=== PATIENT | female | born 1965 | race Caucasian/White ===

== ENCOUNTER 2019-05-28 12:10 | Inpatient (IN) | payer SELFPAY ==
[~2019-05-28] VITALS: Ht 157.5 cm; Wt 77.1 kg
--- OUTSIDE RECORDS SUMMARY | 2019-05-28 12:13 | XMS REPORT ---
Author Author [facility] Address Unknown Phone Unavailable Care Team Providers Care Regional Transportation Manager Name Role Phone Kelsey PARIKH Unavailable Unavailable Payers Payer Name Policy Type Policy Number Effective Date Expiration Date Problems This patient has no known problems. Allergies, Adverse Reactions, Alerts Allergy Name Allergy Type Status Severity Reaction(s) Onset Date Inactive Date Treating Clinician Comments No Known Allergies DA Active U 2018-12-27 00:00:00 Medications This patient has no known medications. Results Test Description Test Time Test Comments Text Results Atomic Results Result Comments - XR FOOT 2 VIEWS RT 2019-05-24 17:32:00 FAX: Trenton Paige NP [place]: St: REG Name: HAN PICHARDO [facility] : 1965 Age/S: 54/F [address] [facility] Unit #: [id number] Loc: [place] [address] Phys: Trenton Paige NP Acct: [id number] Dis Date: Status: REG ER PHONE #: [phone] Exam Date: 05/24/2019 1720 FAX #: [phone] Reason: trauma EXAMS: CPT CODE: [id number] XR FO[place] 2 [place] [id number] REASON FOR EXAM: trauma EXAM ORDER DATE: 05/24/2019 4:53 PM Ordering: Trenton Paige NP Attending:Rojelio Welch MD Location:[facility] PROCEDURE: - XR FOOT 2 VIEWS RT FINDINGS: 2 views of the right foot were obtained. The osseous structures are unremarkable in size and shape. The joint spaces are maintained. No evidence of fracture. The phalanges are intact. The metatarsal and tarsal bones are unremarkable IMPRESSION: Unremarkable right foot at 1732 Reported and signed by: Sage Cope M.D. CC: Trenton Paige NP Technologist: MARJAN SCHUMACHER RT(R) Trnscrd Date/Time/By: 05/24/2019 (579) : By: AliyahVTL Orig Print D/T: S: 05/24/2019 (8686) PAGE 1 Signed Report - XR TIBIA/FIBULA 2 V LT 2019-05-24 17:31:00 FAX: Trenton Paige NP [place]: St: REG Name: HAN PICHARDO [facility] : 1965 Age/S: 54/F [address] [facility] Unit #: [id number] Loc: [place] [address] Phys: Trenton Paige NP Acct: [id number] Dis Date: Status: REG ER PHONE #: [phone] Exam Date: 05/24/2019 1720 FAX #: [phone] Reason: trauma and swelling EXAMS: CPT CODE: [id number] XR TIBIA/FIBULA 2 [place] LT [id number] REASON FOR EXAM: trauma and swelling EXAM ORDER DATE: 05/24/2019 4:53 PM Ordering: Trenton Paige NP Attending: Location:[facility] . PROCEDURE: - XR KNEE 3 V LT, - XR TIBIA/FIBULA 2 V LT FINDINGS: 7 views of the left knee and left lower extremity were obtained. Comminuted lateral tibial plateau fracture The joint spaces are maintained. A moderate hemarthrosis noted The patella is intact IMPRESSION: Comminuted lateral tibial plateau fracture. Recommend correlation with CT. at 1731 Reported and signed by: Sage Cope M.D. CC: Trenton Paige NP Technologist: MARJAN VERA(R) Trnscrd Date/Time/By: 05/24/2019 (6885) : By: AliyahVTL Orig Print D/T: S: 05/24/2019 (5072) PAGE 1 Signed Report - XR KNEE 3 V LT 2019-05-24 17:31:00 FAX: Trenton Paige NP [place]: St: REG Name: HAN PICHARDO [facility] : 1965 Age/S: 54/F [address] [facility] Unit #: [id number] Loc: [place] [address] Phys: Trenton Paige NP Acct: [id number] Dis Date: Status: REG ER PHONE #: [phone] Exam Date: 05/24/2019 1720 FAX #: [phone] Reason: trauma and swelling EXAMS: CPT CODE: [id number] XR KNEE 3 [place] LT [address] REASON FOR EXAM: trauma and swelling EXAM ORDER DATE: 05/24/2019 4:53 PM Ordering: Trenton Paige NP Attending: Location:[facility] . PROCEDURE: - XR KNEE 3 V LT, - XR TIBIA/FIBULA 2 V LT FINDINGS: 7 views of the left knee and left lower extremity were obtained. Comminuted lateral tibial plateau fracture The joint spaces are maintained. A moderate hemarthrosis noted The patella is intact IMPRESSION: Comminuted lateral tibial plateau fracture. Recommend correlation with CT. at 1731 Reported and signed by: Sage Cope M.D. CC: Trenton Paige NP Technologist: MARJAN SCHUMACHER RT(R) Trnscrd Date/Time/By: 05/24/2019 (6976) : By: AliyahVTL Orig Print D/T: S: 05/24/2019 (7288) PAGE 1 Signed Report - XR WRIST 3 + V LT 2019-02-23 16:49:00 FAX: Sophia Blackwood NP [place]: St: REG Name: HAN PICHARDO [facility] : 1965 Age/S: 53/F [address] [facility] Unit #: [id number] Loc: [place] [address] Phys: Sophia Blackwood NP Acct: [id number] Dis Date: Status: REG ER PHONE #: [phone] Exam Date: 02/23/2019 1607 FAX #: [phone] Reason: fall, pain, previous fracture EXAMS: CPT CODE: [id number] XR WRIST 3 + V LT [address]31 REASON FOR EXAM: fall, pain, previous fracture EXAM ORDER DATE: 02/23/2019 3:37 PM Ordering Madhu: Sophia Blackwood NP PROCEDURE: - XR HAND 3 + V LT, - XR WRIST 3 + V LT Comparison:Left wrist radiographs December 27, 2018 FINDINGS: Corticated body adjacent to the ulnar styloid may represent an old fracture and is unchanged from the prior exam. Middle finger DIP joint is flexed and there is a small corticated body on the dorsal surface of the joint which may represent a small avulsion injury. No dislocation. There is flexion of the middle finger DIP joint. There is also interphalangeal joint space narrowing throughout the hand with small osteophytes seen throughout the phalanges. Mild degenerative changes are also present in the first CMC joint. Soft tissues are within normal limits IMPRESSION: Findings suggesting avulsion injury involving the middle finger DIP joint. No other fractures or avulsion are appreciated. Degenerative changes throughout the left hand. Old ulnar styloid fracture is unchanged from the previous radiographs December 2018. at 2106 Reported and signed by: Chiki Riggs MD CC: Sophia Blackwood NP Technologist: JACEK VERA (R) Trnscrd Date/Time/By: 02/23/2019 (512) : By: [email or web address] [facility] Print D/T: S: 02/23/2019 (0148) PAGE 1 Signed Report - XR HAND 3 + V LT 2019-02-23 16:49:00 FAX: Sophia Blackwood NP [place]: St: REG Name: HAN PICHARDO [facility] : 1965 Age/S: 53/F [address] [facility] Unit #: [id number] Loc: [place] [address] Phys: Sophia Blackwood NP Acct: [id number] Dis Date: Status: REG ER PHONE #: [phone] Exam Date: 02/23/2019 6600 FAX #: [phone] Reason: fall, pain, previous fracture EXAMS: CPT CODE: [id number] XR HAND 3 + V LT [address] REASON FOR EXAM: fall, pain, previous fracture EXAM ORDER DATE: 02/23/2019 3:37 PM Ordering MVijayDVijay: Sophia Blackwood NP PROCEDURE: - XR HAND 3 + V LT, - XR WRIST 3 + V LT Comparison:Left wrist radiographs December 27, 2018 FINDINGS: Corticated body adjacent to the ulnar styloid may represent an old fracture and is unchanged from the prior exam. Middle finger DIP joint is flexed and there is a small corticated body on the dorsal surface of the joint which may represent a small avulsion injury. No dislocation. There is flexion of the middle finger DIP joint. There is also interphalangeal joint space narrowing throughout the hand with small osteophytes seen throughout the phalanges. Mild degenerative changes are also present in the first CMC joint. Soft tissues are within normal limits IMPRESSION: Findings suggesting avulsion injury involving the middle finger DIP joint. No other fractures or avulsion are appreciated. Degenerative changes throughout the left hand. Old ulnar styloid fracture is unchanged from the previous radiographs December 2018. at 8529 Reported and signed by: Chiki Riggs MD CC: Sophia Blackwood NP Technologist: JACEK VERA (R) Trnscrd Date/Time/By: 02/23/2019 (7054) : By: [email or web address] [facility] Print D/T: S: 02/23/2019 (6608) PAGE 1 Signed Report - XR WRIST 3 + V LT 2018-12-27 15:02:00 FAX: BIBI MACK NP [place]: St: PRE Name: MARINOHAN Bruno [facility] : 1965 Age/S: 53/F [address] [facility] Unit #: [id number] Loc: [place] [address] Phys: BIBI MACK NP Acct: [id number] Dis Date: Status: PRE ER PHONE #: [phone] Exam Date: 12/27/2018 7451 FAX #: [phone] Reason: Injury pain EXAMS: CPT CODE: [id number] XR WRIST 3 + V LT [address]37 REASON FOR EXAM: Injury pain EXAM ORDER DATE: 12/27/2018 2:24 PM Ordering Madhu: BIBI MACK NP PROCEDURE: - XR WRIST 3 + V LT FINDINGS: 3 views of the left wrist were obtained. The osseous structures are unremarkable in size and shape with a well-corticated osseous fragment in the ulnar styloid process region suggestive of a chronic fracture. The joint spaces are maintained. Minimal narrowing of the radiocarpal joint space consistent with degenerative changes IMPRESSION: No acute osseous abnormality at 1502 Reported and signed by: Sage Cope M.D. CC: BIBI MACK NP Technologist: JACEK RODGERS RT (R) Trnscrd Date/Time/By: 12/27/2018 (7462) : By: AliyahVTL Orig Print D/T: S: 12/27/2018 (9269) PAGE 1 Signed Report PATH COMMENT (CBC) 2017-08-18 08:26:00 NEUTROPHILIA, LEFT SHIFT AND TOXIC GRANULATION AND VACUOLATION. MV08/18/17 CBC WITH AUTO DIFF 2017-08-18 07:19:00 WBC (test code=WBC) 34.16 10\\S\\3/ul 4.80-10.80 RBC (test code=RBC) 4.67 10\\S\\6/ul 4.20-5.40 Hemoglobin (test code=HGB) 13.3 gm/dl 12.0-14.0 Hematocrit (test code=HCT) 41.6 % 37.0-47.0 MCV (test code=MCV) 89.1 fL 81.0-99.0 MCH (test code=MCH) 28.5 pg 27.0-31.0 MCHC (test code=MCHC) 32.0 gm/dl 33.0-37.0 RDW (test code=RDWVC) 14.5 % 11.5-14.5 Platelet (test code=PLT) 375 10\\S\\3/ul 130-400 MPV (test code=MPV) 9.6 fL 7.4-10.4 "NOT MEASURED" RESULTS ARE DISPLAYED WHEN THE INSTRUMENT HAS A SUPPRESSED OR UNREPORTABLE RESULT. THIS WILL MOST OFTEN HAPPEN WITH THE MPV WHEN THERE IS AN ABNORMAL PLATELET DISTRIBUTION DUE TO A CR ITICAL LOW VALUE OR PLATELET CLUMPING. THE RDW MAY BE SUPPRESSED IF THERE ARE MULTIPLE PEAKS PRESENT ON THE RBC HISTOGRAM. IN THIS CASE, A MANUAL REVIEW OF THE SLIDE WILL BE PERFORMED, AND RBC MORPHOLOGY WILL BE NOTED ON THE REPORT. NE% (test code=NE) 80.6 % 42.0-75.0 LY% (test code=LY) 11.9 % 13.0-42.0 MO% (test code=MO) 6.2 % 4.0-14.0 EO% (test code=EO) 0.0 % 1.0-3.0 BA% (test code=BA) 0.2 % 1.0-3.0 IG% (test code=IG%) 1.1 % 0.0-0.4 Bands (test code=BANDM) 7 % 0-2 The value no value originally released by on ############### was changed to 7 by [id number] on 08/18/2017 07:19 Neutrophils (test code=NEUTR) 73 10\\S\\3/ul 42-75 The value no value originally released by on ############### was changed to 73 by [id number] on 08/18/2017 07:19 Lymphocytes (test code=LYMPH) 14 % 13-42 The value no value originally released by on ############### was changed to 14 by [id number] on 08/18/2017 07:19 Monocytes (test code=MONOS) 6 % 4-14 The value no value originally released by on ############### was changed to 6 by [id number] on 08/18/2017 07:19 WBC Morphology (test code=WBCMOR) Toxic Granules The value no value originally released by on ############### was changed to Toxic Granules by [id number] on 08/18/2017 07:19 Platelet Morphology (test code=PLTMORPH) Giant platelets The value no value originally released by on ############### was changed to Giant platelets by [id number] on 08/18/2017 07:19 URINALYSIS WITH [id number] 12:26:00* Test Item Value Reference Range Comments Color (test code=UCOLR) STRAW Clarity (test code=UCLAR) CLEAR Glucose (test code=UGLUC) NEGATIVE NEGATIVE Bilirubin (test code=UBILI) NEGATIVE NEGATIVE Ketones (test code=UKET) NEGATIVE NEGATIVE Specific [place] (test code=USPGR) <=1.005 1.005-1.030 Blood (test code=UBLD) NEGATIVE NEGATIVE PH (test code=UPH) 5.0 4.5-8.0 Protein (test code=UPROT) NEGATIVE NEGATIVE Urobilinogen (test code=U UROB) 0.2 >0.2 Nitrite (test code=UNITR) NEGATIVE NEGATIVE Leukocyte Esterase (test code=ULEUK) NEGATIVE NEGATIVE WBC (test code=WBCUR) 0-5 0-5 RBC (test code=RBCUR) 0-5 0-5 Epithial Cells (test code=U EPI) 0-5 0-10 Bacteria (test code=UBACT) None Seen None Seen,Trace er 4CT ANGIO CHEST W/ [id number] 10:27:23Procedures: CT ANGIO CHEST W/ CONTRASTExam Date: 08/17/2017 8:13 AMOrdering Physician: GINGER RAETClinical Indication: VTE: VTE Diagnostic TestComparison: Chest radiograph, 08/17/17TECHNIQUE: Spiral multislice scanning was obtained through the thorax and aportion of the upper abdomen with a high rate of intravenous contrast infusionfor opacification of the pulmonary arteries. 2-D reconstructions were obtainedaccording to our usual protocol, utilizing a slice thickness of 3 mm or less.This exam was performed according to the our departmental dose-opt imizationprogram which includes automated exposure control, adjustment of the mA and/orkV according to patient size and/or use of iterative reconstruction techn iques.Findings:NECK:Limited evaluation is without significant abnormality.LUNGS: Vascular: The pulmonary arterial vasculature is well opacified for evaluationof pulmonary embolism. No significant filling defects are demonstrated withinthe p ulmonary trunk, main pulmonary arteries, segmental, or subsegmentalbranches.Pneu mothorax: None.Lungs: Innumerable punctate/small groundglass opacities are dem onstratedthroughout the pulmonary parenchyma periphery and are most notable with in theleft lower lobe.Effusion: None.Airways: No significant abnormality.MEDIA STINUM:Aorta: No significant abnormalities of the cardiac structures or aorta.A irways: No significant abnormality.Lymph nodes: Calcified hilar and mediastina l lymph nodes are present and aremost notable within the left hilum measuring ap proximately 2 cm in diameter.Heart: Atherosclerotic calcific plaque within the coronary arteries.Esophagus: No significant abnormality.UPPER ABDOMEN: No sign ificant abnormality of the visualized upper abdominalviscera. Surgical clips ov erlie the gallbladder fossa consistent with priorcholecystectomy. Calcified gran uloma of the spleen.OSSEOUS: Degenerative changes of the spine. No significant osseousabnormalities are otherwise demonstrated.OTHER: No significant abnormal ities of the remaining soft tissues.IMPRESSION:1. No pulmonary embolism of the pulmonary trunk, main pulmonary arteries,segmental, or subsegmental branches.2. Innumerable punctate/small groundglass opacities are demonstrated throughoutthe pulmonary parenchyma periphery and are most notable within the left lowerlobe. This finding likely represents atypical infection; however, otherinflammatory co nditions cannot be entirely excluded.3. Sequelae of chronic granulomatous diseas e, as above.This final report was electronically signed by Dr Di Haile MD08/17/2017 10:21 AMDictated By: DI LOWEDate: 08/17/2017 10:27 XR CHEST 2 PA [id number] 09:16:16ER 4Procedures: XR CHEST 2 PA LATERALExam Date: 08/17/2017 5:09 AMOrdering Physician: MP PARRAUClinical Indication: SOBComparison: Chest radiograph 09/16/11Findings:Technique: Frontal and lateral radiographs of the chest.Medical devices: None.Pneumothorax: No pneumothorax.Lungs: Sequelae of chronic granulomatous disease. No acute radiographicabnormalities of the lungs.Effusion: None.Aorta: No significant abnormality.Heart: Normal.Bones: No significant abnormaliti es.Upper abdomen: Limited evaluation is without significant abnormality.Impress ion:No acute radiographic abnormalities of the thorax.No significant change from prior.This final report was electronically signed by Dr Di Haile MD 9:09 AMDictated By: DI LOWEDate: 08/17/2017 09:16ED RAPID [id number] 08:39:00* Test Item Value Reference Range Comments CKMB (BIOSITE) (test code=BIOCKMB) 1.3 ng/ml 0.0-2.5 TROPONIN-I (BIOSITE) (test code=BIOTROP) <0.050 ng/ml 0.000-0.050 MYOGLOBIN (BIOSITE) (test code=BIOMYO) 46.9 ng/ml 0.0-170.0 SERIAL INSTRUMENT NUMBER (test code=SERIAL) [id number] D-DIMER [id number] 08:01:00* Test Item Value Reference Range Comments D DIMER (test code=D DIM) 0.70 mg/L FEU 0.19-0.50 METHOD CHANGE: 08/12/2012 Due to the discontinued mehodology currently in use, a change in the testing method is necessary. The Reference Ranges will change dramatically, and results are obtained by the observance of clotting activation mesured on the [employer] instruments. This same methodology is currently in use for PT/INR , PTT, AND HEPARIN testing in our Labs. The D-Dimer assay is an aid in the evaluation of thromboembolic events, as in DIC, DVT, Pulmonary Embolism, and other thromboembolic diseases, and should not be used without other diagnostic measures, to properly diagnose and treat thromboembolic disease. REFERENCE RANGE: 0.19 - 0.50 mg/L FEU (Fibrinogen Equivalent Units) Cut-Off Value is: > .50 mg/L FEU Note: Results greater than (>) the Cut-Off are to be considered POSITIVE, and significant in the evaluation of thromboembolic diseases. Results less than (<) the Cut-Off are to be considered NEGATIVE, and a low probability of thromboembolic disease. er [id number] 07:17:00* Test Item Value Reference Range Comments pH (ABG) (test code=BGPH) 7.344 7.350-7.450 pCO2(T) (test code=BGPCO2(T)) 50.4 mm Hg 35.0-45.0 pO2(T) (test code=BGPO2(T)) 76.4 mm Hg 80.0-100.0 sO2 (test code=BGSO2) 96.2 % 90.0-99.0 Na+ (test code=BGCNA+) 139.6 mmol/l 135.0-148.0 K+ (test code=BGCK+) 3.43 mmol/l 3.50-4.50 Ca2+ (test code=BGCCA2+) 1.150 mmol/l 1.120-1.320 Cl- (test code=BGCCL-) 98.3 mmol/l 98-107 tHb (test code=BGCTHB) 13.8 gm/dl 11.5-17.4 O2Hb (test code=DOQN8MH) 89.5 % 95.0-99.0 COHb (test code=BGFCOHB) 6.60 % 0.5-2.5 MetHB (test code=BGMETHB) <1.30 % 0.4-1.5 Gluc (test code=BGCGLU) 107.0 mg/dl 60.0-110.0 Lac (test code=BGCLAC) <1.60 mmol/l 1.0-1.7 Barometric Pressure (test code=BGBARO) 761.9 mm Hg 450.0-1000.0 BE(act) (test code=BGBEACT) 1 mmol/l HCO3 (test code=BGHCO3) 24 meq/L 22-26 ctCO2(B) (test code=BGCTCO2(B)) 24 mmol/l FIO2 (fO2(I) (test code=BGFIO2) 0.28 % Drawn By (test code=BGDRAWNBY) LIDA GARCIA Collection Date (test code=BGDTCOL) 08/17/2017 Collection Time (test code=BGCTM) 07:13 Sample Site (test code=BGSAMPLESITE) R Radial Sample Type (test code=BGSAMPLETYPE) Arterial Allens Test (test code=BGALLEN) Acceptable Notified By (test code=BGNOTIFIEDBY) LIDA GARCIA Notified Whom (test code=BGNOTIFIEDWHOM) DR CASTAÑEDA Date Notified (test code=BGDTNOTIFIED) 08/17/2017 Time Notified (test code=BGTMNOTIFIED) 07:13 O2 Device (test code=[id number]) Nasal Cannula L/M (test code=BGL/M) 2.0 Instrument ID (test code=BGINSTRID) [id number] Reported By (test code=BGREPORTEDBY) LIDA GARCIA [id number] 06:45:00* Test Item Value Reference Range Comments Glucose (test code=GLU) 120 mg/dl 75-110 BUN (test code=BUN) 10.0 mg/dl 6.0-17.0 Creatinine (test code=CREA) 0.5 mg/dl 0.4-1.2 Sodium (test code=NA) 144 mmol/l 137-145 Potassium (test code=K) 3.6 mmol/l 3.5-5.0 Chloride (test code=CL) 102 mmol/l 98-107 CO2 (test code=CO2) 30 mmol/l 22-30 Calcium (test code=CALC) 9.1 mg/dl 8.4-10.2 T Protein (test code=TP) 7.8 gm/dl 5.1-8.7 Albumin (test code=ALB) 4.1 gm/dl 3.5-4.6 A/G Ratio (test code=AGRAT) 1.1 % 1.1-2.2 AST (SGOT) (test code=AST) 42 U/L 11-36 ALT (SGPT) (test code=ALT) 29 U/L 11-40 Alkaline Phos (test code=ALKP) 84 U/L 47-114 Total Bilirubin (test code=TBIL) 0.4 mg/dl 0.2-1.2 Globulin (test code=GLOBU) 3.7 gm/dl 2.3-3.5 Calcium, Corrected (test code=CALCCORR) 9.0 mg/dl 8.4-10.2 Various formulas exist for corrected serum calcium results, each yielding different values. This corrected result was based on the formula: Corrected Calcium=SerumCalcium + [0.8 * ( 4 - SerumAlbumin)] EGFR if (test code=EGFRAA) >60 mL/min/1.73m\\S\\2 EGFR if Non- (test code=EGFRNA) >60 mL/min/1.73m\\S\\2 Estimated Glomerular Filtration Rate (eGFR) Reference Intervals Decision Points for 18 years and older and average body mass: >=60 Does not exclude kidney disease. 30 - 59 Suggests moderate chronic kidney disease and indicates the need for further investigation including assessment of proteinuria and cardiovascular factors. < 30 Usually indicates a need for referral for assessment and management of chronic kidney failure. ER [id number] 06:40:00* Test Item Value Reference Range Comments CPK (test code=CPK) 31 U/L 30-135 ER 4CBC WITH AUTO [id number] 06:34:00* Test Item Value Reference Range Comments WBC (test code=WBC) 16.61 10\\S\\3/ul 4.80-10.80 RBC (test code=RBC) 4.85 10\\S\\6/ul 4.20-5.40 Hemoglobin (test code=HGB) 14.0 gm/dl 12.0-14.0 Hematocrit (test code=HCT) 44.1 % 37.0-47.0 MCV (test code=MCV) 90.9 fL 81.0-99.0 MCH (test code=MCH) 28.9 pg 27.0-31.0 MCHC (test code=MCHC) 31.7 gm/dl 33.0-37.0 RDW (test code=RDWVC) 14.6 % 11.5-14.5 Platelet (test code=PLT) 360 10\\S\\3/ul 130-400 MPV (test code=MPV) 9.4 fL 7.4-10.4 "NOT MEASURED" RESULTS ARE DISPLAYED WHEN THE INSTRUMENT HAS A SUPPRESSED OR UNREPORTABLE RESULT. THIS WILL MOST OFTEN HAPPEN WITH THE MPV WHEN THERE IS AN ABNORMAL PLATELET DISTRIBUTION DUE TO A CR ITICAL LOW VALUE OR PLATELET CLUMPING. THE RDW MAY BE SUPPRESSED IF THERE ARE MULTIPLE PEAKS PRESENT ON THE RBC HISTOGRAM. IN THIS CASE, A MANUAL REVIEW OF THE SLIDE WILL BE PERFORMED, AND RBC MORPHOLOGY WILL BE NOTED ON THE REPORT. NE% (test code=NE) 43.5 % 42.0-75.0 LY% (test code=LY) 45.6 % 13.0-42.0 MO% (test code=MO) 9.0 % 4.0-14.0 EO% (test code=EO) 1.0 % 1.0-3.0 BA% (test code=BA) 0.5 % 1.0-3.0 IG% (test code=IG%) 0.4 % 0.0-0.4 ER 4ED RAPID [id number] 06:30:00* Test Item Value Reference Range Comments CKMB (BIOSITE) (test code=BIOCKMB) 1.7 ng/ml 0.0-2.5 TROPONIN-I (BIOSITE) (test code=BIOTROP) <0.050 ng/ml 0.000-0.050 MYOGLOBIN (BIOSITE) (test code=BIOMYO) 64.3 ng/ml 0.0-170.0 SERIAL INSTRUMENT NUMBER (test code=SERIAL) [id number] ED RAPID [id number] 06:29:00* Test Item Value Reference Range Comments B-PEPTIDE (BIOSITE) (test code=BIOBNP) 11.3 pg/ml 0.0-100.0 SERIAL INSTRUMENT NUMBER (test code=SERIAL) [id number]
--- OUTSIDE RECORDS SUMMARY | 2019-05-28 12:13 | XMS REPORT | Continuity of Care Document ---
Author Author [facility] Organization [facility] Address [address] [place] [place] [address] ;ext= Care Team Providers Care Leasing Professional Name Role Phone DR DI ZAPATA DR DI ZAPATA [facility] Admission Diagnosis Code Admission Diagnosis Date Acute exacerbation of chronic obstructive airways disease Social History Element Description Code Description Smoking Status Code System Start Date End Date Smoking Status [id number] Current every day smoker SNOMED-CT Problems Code Code System Problem Name Start Date End Date Status 02931698 SNOMED-CT Chronic obstructive lung disease Unknown Active 108999776 SNOMED-CT Backache Unknown Active 21085523 SNOMED-CT Nausea and vomiting Unknown Active 959092748 SNOMED-CT Asthma Unknown Active 45836809 SNOMED-CT Abdominal pain Unknown Active 86027487 SNOMED-CT Bronchitis Unknown Active 16579671 SNOMED-CT Depressive disorder Unknown Active 07611836 SNOMED-CT Migraine Unknown Active 45697569 SNOMED-CT Schizoaffective disorder, bipolar type Unknown Active 821621908 SNOMED-CT Hepatitis B and hepatitis C Unknown Active 04636000 SNOMED-CT Anxiety Unknown Active 844761600 SNOMED-CT Acid reflux Unknown Active Medications RxNorm Medication Dose Route Instructions Indications Start Date End Date Status 435 Albuterol 2 puff Inhalation inhaled every 8 hours (administer with spacer;) Active 435 Albuterol 2.5 milligram Inhalation inhaled 3 to 4 times per day as needed. (21 day) shortness of breath Active Budesonide 2 inhalation Inhalation inhaled 2 times per day Active 414595 buspirone hydrochloride 15 MG Oral Tablet 15 milligram Oral orally 4 times per day Active 849668 Cefuroxime 500 MG Oral Tablet 500 milligram Oral orally 2 times per day (5 days) Active 7325441 Fluoxetine 60 MG Oral Tablet 60 milligram Oral orally every day Active 58734 gabapentin 300 milligram Oral orally 2 times per day Active NICOTINE PATCH 24HR 21 MG TOPICAL TOPICAL ONCE A DAY 08/17/2017 Active 430318 olanzapine 20 MG Oral Tablet 20 milligram Oral orally every day at bedtime Active 621997 Ondansetron 8 MG Oral Tablet 8 milligram Oral orally every day as needed. nausea and vomiting Active 111846 Prednisone 20 MG Oral Tablet 20 milligram Oral orally every day Active 9143 Ranitidine 300 milligram Oral orally every day Active 916903 Trazodone Hydrochloride 150 MG Oral Tablet 150 milligram Oral orally every day at bedtime Active 013275 24 HR Fesoterodine Fumarate 8 MG Extended Release Oral Tablet 8 milligram Oral orally every day No Longer Active 348778 Naproxen 500 MG Oral Tablet 500 milligram Oral orally 2 times per day as needed. (administer with food or milk;) pain No Longer Active Allergies Code Code System Allergy Substance Type Reaction Severity Start Date End Date Status 509901 RXNorm Depakote Drug allergy liver failure Severe Active Results Laboratory Results Order: CBC PLATELET AUTO DIFF LOINC Test Result Flag Range Unit Date 1Leukocytes^^corrected for nucleated erythrocytes:NCnc:Pt:Bld:Qn:Automated count 34.16 H 4.80-10.80 10^3/ul 08/18/2017 05:50 789-8 1Erythrocytes:NCnc:Pt:Bld:Qn:Automated count 4.67 4.20-5.40 10^6/ul 08/18/2017 05:50 718-7 1Hemoglobin:MCnc:Pt:Bld:Qn 13.3 12.0-14.0 gm/dl 08/18/2017 05:50 4544-3 1Hematocrit:VFr:Pt:Bld:Qn:Automated count 41.6 37.0-47.0 % 08/18/2017 05:50 787-2 1Erythrocyte mean corpuscular volume:EntVol:Pt:RBC:Qn:Automated count 89.1 81.0-99.0 fL 08/18/2017 05:50 785-6 1Erythrocyte mean corpuscular hemoglobin:EntMass:Pt:RBC:Qn:Automated count 28.5 27.0-31.0 pg 08/18/2017 05:50 786-4 1Erythrocyte mean corpuscular hemoglobin concentration:MCnc:Pt:RBC:Qn:Automated count 32 L 33.0-37.0 gm/dl 08/18/2017 05:50 788-0 1Erythrocyte distribution width:Ratio:Pt:RBC:Qn:Automated count 14.5 11.5-14.5 % 08/18/2017 05:50 777-3 1Platelets:NCnc:Pt:Bld:Qn:Automated count 375 130-400 10^3/ul 08/18/2017 05:50 41345-8 1Platelet mean volume:EntVol:Pt:Bld:Qn:Automated count 9.6 A 7.4-10.4 fL 08/18/2017 05:50 Note: 'NOT MEASURED' RESULTS ARE DISPLAYED WHEN THE INSTRUMENT HAS A SUPPRESSED OR UNREPORTABLE RESULT. THIS WILL MOST OFTEN HAPPEN WITH THE MPV WHEN THERE IS AN ABNORMAL PLATELET DISTRIBUTION DUE TO A CRITICAL LOW VALUE OR PLATELET CLUMPING. THE RDW MAY BE SUPPRESSED IF THERE ARE MULTIPLE PEAKS PRESENT ON THE RBC HISTOGRAM. IN THIS CASE, A MANUAL REVIEW OF THE SLIDE WILL BE PERFORMED, AND RBC MORPHOLOGY WILL BE NOTED ON THE REPORT. 770-8 1Neutrophils/100 leukocytes:NFr:Pt:Bld:Qn:Automated count 80.6 H 42.0-75.0 % 08/18/2017 05:50 736-9 1Lymphocytes/100 leukocytes:NFr:Pt:Bld:Qn:Automated count 11.9 L 13.0-42.0 % 08/18/2017 05:50 5905-5 1Monocytes/100 leukocytes:NFr:Pt:Bld:Qn:Automated count 6.2 4.0-14.0 % 08/18/2017 05:50 713-8 1Eosinophils/100 leukocytes:NFr:Pt:Bld:Qn:Automated count 0 L 1.0-3.0 % 08/18/2017 05:50 706-2 1Basophils/100 leukocytes:NFr:Pt:Bld:Qn:Automated count 0.2 L 1.0-3.0 % 08/18/2017 05:50 1IG% 1.1 H 0.0-0.4 % 08/18/2017 05:50 1Bands 7 H 0-2 % 08/18/2017 05:50 Note: The value no value originally released by on ############### was changed to 7 by [id number] on 08/18/2017 07:19 1Neutrophils 73 42-75 10^3/ul 08/18/2017 05:50 Note: The value no value originally released by on ############### was changed to 73 by [id number] on 08/18/2017 07:19 1Lymphocytes 14 13-42 % 08/18/2017 05:50 Note: The value no value originally released by on ############### was changed to 14 by [id number] on 08/18/2017 07:19 1Monocytes 6 4-14 % 08/18/2017 05:50 Note: The value no value originally released by on ############### was changed to 6 by [id number] on 08/18/2017 07:19 1WBC Morphology Toxic Granules 08/18/2017 05:50 Note: The value no value originally released by on ############### was changed to Toxic Granules by [id number] on 08/18/2017 07:19 1Platelet Morphology Giant platelets 08/18/2017 05:50 Note: The value no value originally released by on ############### was changed to Giant platelets by [id number] on 08/18/2017 07:19 * Performing Lab Footnotes:* [address] [place] [address] - [id number] - [address] [facility] [address] [place] [address] [facility] - MD: DIRECTOR GABINO OSEI Order: PATH COMMENT (CBC) LOINC Test Result Flag Range Unit Date 1 NEUTROPHILIA, LEFT SHIFT AND TOXIC GRANULATION AND VACUOLATION. DR GUERRA 08/18/2017 05:50 1 08/18/17 08/18/2017 05:50 * Performing Lab Footnotes:* [address] [place] [address] - [id number] - [address] [facility] [address] [place] [address] [facility] - MD: DIRECTOR GABINO OSEI Order: UA URINALYSIS WITH MICROSCOPY LOINC Test Result Flag Range Unit Date 5778-6 1Color:Type:Pt:Urine:Nom STRAW 08/17/2017 12:05 5767-9 1Appearance:Aper:Pt:Urine:Nom CLEAR 08/17/2017 12:05 2349-9 1Glucose:ACnc:Pt:Urine:Ord NEGATIVE NEGATIVE 08/17/2017 12:05 5770-3 1Bilirubin:ACnc:Pt:Urine:Ord:Test strip NEGATIVE NEGATIVE 08/17/2017 12:05 2514-8 1Ketones:ACnc:Pt:Urine:Ord:Test strip NEGATIVE NEGATIVE 08/17/2017 12:05 5811-5 1Specific gravity:Rden:Pt:Urine:Qn:Test strip <=1.005 A 1.005-1.030 08/17/2017 12:05 5794-3 1Hemoglobin:ACnc:Pt:Urine:Ord:Test strip NEGATIVE NEGATIVE 08/17/2017 12:05 5803-2 1pH:LsCnc:Pt:Urine:Qn:Test strip 5.0 A 4.5-8.0 08/17/2017 12:05 28115-7 1Protein:ACnc:Pt:Urine:Ord:Test strip NEGATIVE NEGATIVE 08/17/2017 12:05 5818-0 1Urobilinogen:ACnc:Pt:Urine:Ord:Test strip 0.2 0.2 08/17/2017 12:05 5802-4 1Nitrite:ACnc:Pt:Urine:Ord:Test strip NEGATIVE NEGATIVE 08/17/2017 12:05 5799-2 1Leukocyte esterase:ACnc:Pt:Urine:Ord:Test strip NEGATIVE NEGATIVE 08/17/2017 12:05 5821-4 1Leukocytes:Naric:Pt:Urine sed:Qn:Microscopy.light.HPF 0-5 0-5 08/17/2017 12:05 34675-4 1Erythrocytes:Naric:Pt:Urine sed:Qn:Microscopy.light.HPF 0-5 0-5 08/17/2017 12:05 98157-7 1Epithelial cells.squamous:Naric:Pt:Urine sed:Qn:Microscopy.light.HPF 0-5 A 0-10 08/17/2017 12:05 5769-5 1Bacteria:Naric:Pt:Urine sed:Qn:Microscopy.light.HPF None Seen None Seen,Trace 08/17/2017 12:05 * Performing Lab Footnotes:* [address] [place] [address] [id number] - [address] [place] [address] [place] - MD: DIRECTOR GABINO OSEI Order: ED RAPID PANEL LOINC Test Result Flag Range Unit Date 1CKMB (BIOSITE) 1.3 0.0-2.5 ng/ml 08/17/2017 08:38 1TROPONIN-I (BIOSITE) <0.050 0.000-0.050 ng/ml 08/17/2017 08:38 1MYOGLOBIN (BIOSITE) 46.9 0.0-170.0 ng/ml 08/17/2017 08:38 1SERIAL INSTRUMENT NUMBER [id number] 08/17/2017 08:38 * Performing Lab Footnotes:* [address] [place] [address] - [id number] - [address] [facility] [address] [place] [address] [facility] - MD: DIRECTOR GABINO OSEI Order: Arterial Blood Gas - ABG LOINC Test Result Flag Range Unit Date 1pH (ABG) 7.344 L 7.350-7.450 08/17/2017 07:08 1pCO2(T) 50.4 H 35.0-45.0 mmHg 08/17/2017 07:08 1pO2(T) 76.4 L 80.0-100.0 mmHg 08/17/2017 07:08 1sO2 96.2 90.0-99.0 % 08/17/2017 07:08 1Na+ 139.6 135.0-148.0 mmol/l 08/17/2017 07:08 1K+ 3.43 L 3.50-4.50 mmol/l 08/17/2017 07:08 1Ca2+ 1.15 1.120-1.320 mmol/l 08/17/2017 07:08 1Cl- 98.3 98-107 mmol/l 08/17/2017 07:08 1tHb 13.8 11.5-17.4 gm/dl 08/17/2017 07:08 1O2Hb 89.5 L 95.0-99.0 % 08/17/2017 07:08 1COHb 6.6 HH 0.5-2.5 % 08/17/2017 07:08 1MetHB <1.30 0.4-1.5 % 08/17/2017 07:08 1Gluc 107 60.0-110.0 mg/dl 08/17/2017 07:08 1Lac <1.60 1.0-1.7 mmol/l 08/17/2017 07:08 1Barometric Pressure 761.9 450.0-1000.0 mmHg 08/17/2017 07:08 1BE(act) 1 mmol/l 08/17/2017 07:08 1HCO3 24 22-26 meq/L 08/17/2017 07:08 1ctCO2(B) 24 mmol/l 08/17/2017 07:08 1FIO2 (fO2(I) 0.28 % 08/17/2017 07:08 1Drawn By LIDA GARCIA 08/17/2017 07:08 1Collection Date 08/17/2017 08/17/2017 07:08 1Collection Time 07:13 08/17/2017 07:08 1Sample Site R Radial 08/17/2017 07:08 1Sample Type Arterial 08/17/2017 07:08 1Allens Test Acceptable 08/17/2017 07:08 1Notified By LIDA GARCIA 08/17/2017 07:[address] CASTAÑEDA 08/17/2017 07:08 1Date Notified 08/17/2017 08/17/2017 07:08 1Time Notified 07:13 08/17/2017 07:08 1O2 Device Nasal Cannula 08/17/2017 07:08 1L/M 2.0 08/17/2017 07:08 1[place] [id number] 08/17/2017 07:08 1Reported By LIDA GARCIA 08/17/2017 07:08 * Performing Lab Footnotes:* [address] [place], [place] [address]TIMOTHY [id number] - [address] [place], [place] [address] [address] [facility] - MD: DIRECTOR GABINO OSEI Order: ED RAPID BNP LOINC Test Result Flag Range Unit Date 1B-PEPTIDE (BIOSITE) 11.3 0.0-100.0 pg/ml 08/17/2017 06:27 1SERIAL INSTRUMENT NUMBER [id number] 08/17/2017 06:27 * Performing Lab Footnotes:* [address] [place] [address] - [id number] - [address] [facility] [address] [place] [address] [facility] - MD: DIRECTOR GABINO OSEI Order: CMP COMPREHENSIVE METABOLIC PANEL LOINC Test Result Flag Range Unit Date 1Glucose 120 H 75-110 mg/dl 08/17/2017 06:00 1BUN 10 6.0-17.0 mg/dl 08/17/2017 06:00 1Creatinine 0.5 0.4-1.2 mg/dl 08/17/2017 06:00 1Sodium 144 137-145 mmol/l 08/17/2017 06:00 1Potassium 3.6 3.5-5.0 mmol/l 08/17/2017 06:00 1Chloride 102 98-107 mmol/l 08/17/2017 06:00 1CO2 30 22-30 mmol/l 08/17/2017 06:00 1Calcium 9.1 8.4-10.2 mg/dl 08/17/2017 06:00 1T Protein 7.8 5.1-8.7 gm/dl 08/17/2017 06:00 1Albumin 4.1 3.5-4.6 gm/dl 08/17/2017 06:00 1A/G Ratio 1.1 1.1-2.2 % 08/17/2017 06:00 1AST (SGOT) 42 H 11-36 U/L 08/17/2017 06:00 1ALT (SGPT) 29 11-40 U/L 08/17/2017 06:00 1Alkaline Phos 84 47-114 U/L 08/17/2017 06:00 1Total Bilirubin 0.4 0.2-1.2 mg/dl 08/17/2017 06:00 1Globulin 3.7 H 2.3-3.5 gm/dl 08/17/2017 06:00 1Calcium, Corrected 9 8.4-10.2 mg/dl 08/17/2017 06:00 Note: Various formulas exist for corrected serum calcium results, each yielding different values. This corrected result was based on the formula: Corrected Calcium=SerumCalcium + [0.8 * ( 4 - SerumAlbumin)] 1EGFR if >60 mL/min/1.73m^2 08/17/2017 06:00 1EGFR if Non- >60 mL/min/1.73m^2 08/17/2017 06:00 Note: Estimated Glomerular Filtration Rate (eGFR) Reference Intervals Decision Points for 18 years and older and average body mass: >=60 Does not exclude kidney disease. 30 - 59 Suggests moderate chronic kidney disease and indicates the need for further investigation including assessment of proteinuria and cardiovascular factors. < 30 Usually indicates a need for referral for assessment and management of chronic kidney failure. * Performing Lab Footnotes:* [address] [place] [address] [id number] - [address] [place], [place] [id number] MICKY Arauz MD: DIRECTOR GABINO OSEI Order: CPK LOINC Test Result Flag Range Unit Date 1CPK 31 30-135 U/L 08/17/2017 06:00 * Performing Lab Footnotes:* [address] [place] [address] - [id number] - [address] [address] MICKY Arauz MD: DIRECTOR GABINO OSEI Order: D DIMER QUANTITATIVE LOINC Test Result Flag Range Unit Date 1D DIMER 0.7 H 0.19-0.50 mg/LFEU 08/17/2017 06:00 Note: METHOD CHANGE: 08/12/2012 Due to the discontinued mehodology currently in use, a change in the testing method is necessary. The Reference Ranges will change dramatically, and results are obtained by the observance of clotting activation mesured on the [employer] instruments. This same methodology is currently in [...] and a low probability of thromboembolic disease. * Performing Lab Footnotes:* [address] [place] [address] - [id number] - [address] [place] [address] [facility] - MD: DIRECTOR GABINO OSEI Radiology Results Order: [id number] CT ANGIO CHEST W/ CONTRAST* Exam Completion Date:08/17/2017 08:13 Procedures: CT ANGIO CHEST W/ CONTRASTExam Date: 08/17/2017 8:13 AMOrdering Ph ysician: GINGER RAETClinical Indication: VTE: VTE Diagnostic TestComparison: Ch est radiograph, 08/17/17TECHNIQUE: Spiral multislice scanning was obtained thro [facility] the thorax and aportion of the upper abdomen with a high rate of intravenous contrast infusionfor opacification of the pulmonary arteries. 2-D reconstructi ons were obtainedaccording to our usual protocol, utilizing a slice thickness of 3 mm or less.This exam was performed according to the our departmental dose-opt imizationprogram which includes automated exposure control, adjustment of the mA and/orkV according to patient size and/or use of iterative reconstruction techn iques.Findings: NECK: Limited evaluation is without significant abnormality.EVA GS: Vascular: The pulmonary arterial vasculature is well opacified for evaluat ionof pulmonary embolism. No significant filling defects are demonstrated within the pulmonary trunk, main pulmonary arteries, segmental, or subsegmentalbranches . Pneumothorax: None.Lungs: Innumerable punctate/small groundglass opacities are demonstratedthroughout the pulmonary parenchyma periphery and are most nota ble within theleft lower lobe. Effusion: None. Airways: No significant abnor mality.MEDIASTINUM: Aorta: No significant abnormalities of the cardiac structu res or aorta. Airways: No significant abnormality.Lymph nodes: Calcified hil ar and mediastinal lymph nodes are present and aremost notable within the left h ilum measuring approximately 2 cm in diameter.Heart: Atherosclerotic calcific p laque within the coronary arteries.Esophagus: No significant abnormality.UPPER ABDOMEN: No significant abnormality of the visualized upper abdominalviscera. Surgical clips overlie the gallbladder fossa consistent with priorcholecystectom y. Calcified granuloma of the spleen.OSSEOUS: Degenerative changes of the spine . No significant osseousabnormalities are otherwise demonstrated.OTHER: No sig nificant abnormalities of the remaining soft tissues.IMPRESSION: 1. No pulmonar y embolism of the pulmonary trunk, main pulmonary arteries,segmental, or subsegm ental branches.2. Innumerable punctate/small groundglass opacities are demonstr ated throughoutthe pulmonary parenchyma periphery and are most notable within th e left lowerlobe. This finding likely represents atypical infection; however, ot herinflammatory conditions cannot be entirely excluded. 3. Sequelae of chronic g ranulomatous disease, as above. This final report was electronically signed by Dr Di Haile MD 08/17/2017 10:21 AMDictated By: MINH LOWE ate: 08/17/2017 10:27 Order: [id number] XR CHEST 2 PA LATERAL* Exam Completion Date:08/17/2017 05:09 Procedures: XR CHEST 2 PA LATERALExam Date: 08/17/2017 5:09 AMOrdering Physicia n: CLEMENT ANYANWUClinical Indication: SOBComparison: Chest radiograph 2Findings: Technique: Frontal and lateral radiographs of the chest. Medical devices: None. Pneumothorax: No pneumothorax. Lungs: Sequelae of chronic g ranulomatous disease. No acute radiographicabnormalities of the lungs.Effusion: None.Aorta: No significant abnormality.Heart: Normal. Bones: No significant abnormalities.Upper abdomen: Limited evaluation is without significant abnorma lity.Impression: No acute radiographic abnormalities of the thorax. No signifi cant change from prior.This final report was electronically signed by Dr Di peters MD 08/17/2017 9:09 AMDictated By: DI LOWEDate: 2017 09:16 Vital Signs Vitals Value Date Body Temperature 97.7 F 08/18/2017 Respiratory Rate 20 08/18/2017 O2% BldC Oximetry 94 08/18/2017 BP Systolic 125 mmHg 08/18/2017 BP Diastolic 67 mmHg 08/18/2017 Weight Measured 175.92 lbs 08/18/2017 Plan of Care * No data in the system Procedures Code Code System Procedure Name Target Site Date of Procedure CT ANGIO CHEST W/ CONTRAST 08/17/2017 10:27 XR CHEST 2 PA LATERAL 08/17/2017 09:16 Encounters Date Code Diagnosis Status (ICD10) - J441 COPD WITH ACUTE EXACERBATION Active Immunizations * No data in the system Functional Status Code Functional/Cognitive Condition Code System Date Status 853070234 No speech problem (situation) SNOMED-CT 08/18/2017 Active 636634590 Wears glasses SNOMED-CT 08/18/2017 Active 615915187 Light touch, function (observable entity) SNOMED-CT 08/18/2017 Active 340850659 Orientated SNOMED-CT 08/18/2017 Active 700891737 Orientated SNOMED-CT 08/18/2017 Active 007645791 Orientated SNOMED-CT 08/18/2017 Active 393931959 Ability to concentrate (observable entity) SNOMED-CT 08/17/2017 Active 128275541 Ability to perform activities of everyday life (observable entity) SNOMED-CT 08/17/2017 Active 063689097 Ability to manage personal health care (observable entity) SNOMED-CT 08/17/2017 Active 116190632 Oriented to person [facility] 08/18/2017 Active 17470465 Normal vision [facility]-CT 08/17/2017 Active Hospital Discharge Instructions * VTE* VTE Discharge Instructions* Education given related to Follow-Up after Discharge * Education given related to Discharge Medications * Psychosocial* Housing Type* House * Assistance Required* None * Patient/Family Concerns* None * Emotional State* Calm * Pleasant * Discharge Instructions* Discharge Diagnosis* DX: COPD-HYPOXIA * Physician Name for Follow Up Appt #1* DR. NIKOLAI JUAREZ PSYCHIATRIST OFFICE # [phone] PLEASE KEEP YOUR SCHEDULED APPOINTMENT AT [facility] SEPT[facility] 10, 2017 @ 08:20 AM * Pneumonia Vaccine* Refused By Patient * Physician Name for Follow Up Appt #2* FOLLOW UP WITH PRIMARY CARE PHYSICIAN ON FRIDAY AND TO HAVE BLOOD WORK DONE FOR CBC, CMP. * IV Removed Date* 08/18/2017 * Discharge Weight* 79.8 KGS * Copy of Advanced Directive given to Patient* No * Referral Required* None * Activity Level* As tolerated, unrestricted * Medications* Continue Present Medications * Prescriptions Called To Pharmacy * Take all medications as listed on your Discharge Medication List as directed * DO NOT STOP taking your medicine(s) until directed by your doctor. * Diet* Regular * Discharge Instructions* Patient education provided * Follow Up Care* Yes * Scheduled Appointment * Readmission Risk (LACE Score)* 7 * Written Discharge Plan given to the Patient at the time of discharge contains: * Reason for hospitalization * Discharge medications including what medications to take, how to take them, and how to obtain the medication. * Patient / family / caregiver given instructions on what to do if their condition changes. * Coordination and planning for follow-up appointments that the patient can keep. * Coordination and planning for follow-up of tests and studies for which confirmed results are not available at time of discharge. * Influenza Vaccine NOT Given, State Reason(s) Below:* Refused By Patient/Caregiver * Discharge Instructions 2* Wound / Incision Care* Not Applicable * Core Measure / Get with the Guidelines (AMI/HF)* Review Discharge Medications with patient for next dose times * Smoking Cessation Teaching* Patient is a current smoker or former smoker of less than one year * Discharge Education* Copy of Discharge Medication List * Discussed New / Changed Medications * Personal Belongings Returned To Patient/Family* Yes * Valuables Returned To Patient/Family* N/A * Pre-Admission Medications Returned To Patient/Family* N/A * Patient/Significant Other Education Acknowledgement* I hereby acknowledge receiving the explanation of the attached instructions. I was able to 'teach back' my health information and education to my nurse and I understand what I was taught as indicated by my signature below. * Discharge Instructions Explained To* Patient * Discharge Summary* Mode Of Discharge* PER PRIVATE CAR * Wheelchair * Discharge Status* Vital Signs Stable * Patient Transferred/Discharged To* Home * Discharge Status* Afebrile * Adequate Diet/Liquid Intake * Accompanied By* Relatives * Discharge Status* Adequate Urinary Output * Adequate Bowel Functioning * Mode Of Discharge* Other * Discharge Status* Activity Tolerated within Physical Limits * Home Health Care Monitoring Required* No * Pain At Discharge* Denies Pain * Pt shows no visible signs of pain * [facility] Dishcharge* Physician Name for Follow Up Appt #1* RETURN TO THE HOSPITAL IMMEDIATELY IF HIGH FEVER, CHILLS, PURULENT DRAINAGE, NUM BNESS/TINGLING, WORSENING PAIN/SWELLING, CHEST PAIN OR SHORTNESS OF BREATH OCCUR. * Transfer* Notified of Discharge/Transfer* Family * Report Given On* FALL PRECAUTIONS * Fall Precautions * Other * Transfer Mode* PER PRIVATE CAR * Wheelchair * Other
--- OUTSIDE RECORDS SUMMARY | 2019-05-28 12:13 | XMS REPORT | Continuity of Care Document ---
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 Name Role Phone JOSS TIFFANIE Admphys TIFFANIE [facility] Admission Diagnosis Code Admission Diagnosis Date [id number] Chronic obstructive lung disease Social History Element Description Code Description Smoking Status Code System Start Date End Date Smoking Status [id number] Current every day smoker SNOMED-CT Problems Code Code System Problem Name Start Date End Date Status [id number] SNOMED-CT Abscess of skin AND/OR subcutaneous tissue 11/08/2017 Active 35346573 SNOMED-CT Chronic obstructive lung disease Unknown Active 129368983 SNOMED-CT Backache Unknown Active 06969780 SNOMED-CT Nausea and vomiting Unknown Active 275045816 SNOMED-CT Asthma Unknown Active 21736383 SNOMED-CT Abdominal pain Unknown Active 40613256 SNOMED-CT Bronchitis Unknown Active 60758781 SNOMED-CT Depressive disorder Unknown Active 12563109 SNOMED-CT Migraine Unknown Active 07985950 SNOMED-CT Schizoaffective disorder, bipolar type Unknown Active 305681527 SNOMED-CT Hepatitis B and hepatitis C Unknown Active 90116517 SNOMED-CT Anxiety Unknown Active 532837400 SNOMED-CT Acid reflux Unknown Active Medications RxNorm Medication Dose Route Instructions Indications Start Date End Date Status 435 Albuterol 2 puff Inhalation inhaled every 8 hours (administer with spacer;) Active 435 Albuterol 2.5 milligram Inhalation inhaled 3 to 4 times per day as needed. (21 day) shortness of breath Active Budesonide 2 inhalation Inhalation inhaled 2 times per day Active 807535 buspirone hydrochloride 15 MG Oral Tablet 15 milligram Oral orally 4 times per day Active 409885 Cefuroxime 500 MG Oral Tablet 500 milligram Oral orally 2 times per day (5 days) Active 1530525 Fluoxetine 60 MG Oral Tablet 60 milligram Oral orally every day Active 75590 gabapentin 300 milligram Oral orally 2 times per day Active 966744 Mupirocin 20 MG/ML Topical Cream 1 application Topical topically 2 times per day 11/08/2017 Active NICOTINE PATCH 24HR 21 MG TOPICAL TOPICAL ONCE A DAY 08/17/2017 Active 271728 olanzapine 20 MG Oral Tablet 20 milligram Oral orally every day at bedtime Active 552165 Ondansetron 8 MG Oral Tablet 8 milligram Oral orally every day as needed. nausea and vomiting Active 073137 Prednisone 20 MG Oral Tablet 20 milligram Oral orally every day Active 9143 Ranitidine 300 milligram Oral orally every day Active 242266 Trazodone Hydrochloride 150 MG Oral Tablet 150 milligram Oral orally every day at bedtime Active 650832 24 HR Fesoterodine Fumarate 8 MG Extended Release Oral Tablet 8 milligram Oral orally every day No Longer Active 018408 Naproxen 500 MG Oral Tablet 500 milligram Oral orally 2 times per day as needed. (administer with food or milk;) pain No Longer Active Allergies Code Code System Allergy Substance Type Reaction Severity Start Date End Date Status 825217 RXNorm Depakote Drug allergy liver failure Severe Active Results * No data in the system Vital Signs * No data in the system Plan of Care * No data in the system Procedures * No data in the system Encounters Date Code Diagnosis Status (ICD10) - J449 COPD UNSPECIFIED Active Immunizations * No data in the system Functional Status * No data in the system Hospital Discharge Instructions * No data in the system
--- OUTSIDE RECORDS SUMMARY | 2019-05-28 12:13 | XMS REPORT | Continuity of Care Document ---
Author Author [facility] Organization [facility] Address [address] [place] [address] ;ext= Care Team Providers Care Check Embosser Name Role Phone DR MADDIE BEAN DR MADDIE BEAN [facility] Admission Diagnosis Code Admission Diagnosis Date [id number] Disorder of skin AND/OR subcutaneous tissue Social History Element Description Code Description Smoking Status Code System Start Date End Date Smoking Status [id number] Current every day smoker SNOMED-CT Problems Code Code System Problem Name Start Date End Date Status 95415369 SNOMED-CT Abscess of skin AND/OR subcutaneous tissue 11/08/2017 Active 45497132 SNOMED-CT Chronic obstructive lung disease Unknown Active 858273755 SNOMED-CT Backache Unknown Active 66214638 SNOMED-CT Nausea and vomiting Unknown Active 142757089 SNOMED-CT Asthma Unknown Active 80443350 SNOMED-CT Abdominal pain Unknown Active 30504569 SNOMED-CT Bronchitis Unknown Active 73022948 SNOMED-CT Depressive disorder Unknown Active 24069872 SNOMED-CT Migraine Unknown Active 18531401 SNOMED-CT Schizoaffective disorder, bipolar type Unknown Active 683798784 SNOMED-CT Hepatitis B and hepatitis C Unknown Active 66455008 SNOMED-CT Anxiety Unknown Active 249149200 SNOMED-CT Acid reflux Unknown Active Medications RxNorm Medication Dose Route Instructions Indications Start Date End Date Status 435 Albuterol 2 puff Inhalation inhaled every 8 hours (administer with spacer;) Active 435 Albuterol 2.5 milligram Inhalation inhaled 3 to 4 times per day as needed. (21 day) shortness of breath Active Budesonide 2 inhalation Inhalation inhaled 2 times per day Active 701298 buspirone hydrochloride 15 MG Oral Tablet 15 milligram Oral orally 4 times per day Active 996155 Cefuroxime 500 MG Oral Tablet 500 milligram Oral orally 2 times per day (5 days) Active 4573722 Fluoxetine 60 MG Oral Tablet 60 milligram Oral orally every day Active 78324 gabapentin 300 milligram Oral orally 2 times per day Active 804491 Mupirocin 20 MG/ML Topical Cream 1 application Topical topically 2 times per day 11/08/2017 Active NICOTINE PATCH 24HR 21 MG TOPICAL TOPICAL ONCE A DAY 08/17/2017 Active 862726 olanzapine 20 MG Oral Tablet 20 milligram Oral orally every day at bedtime Active 332443 Ondansetron 8 MG Oral Tablet 8 milligram Oral orally every day as needed. nausea and vomiting Active 496743 Prednisone 20 MG Oral Tablet 20 milligram Oral orally every day Active 9143 Ranitidine 300 milligram Oral orally every day Active 215931 Trazodone Hydrochloride 150 MG Oral Tablet 150 milligram Oral orally every day at bedtime Active 547647 24 HR Fesoterodine Fumarate 8 MG Extended Release Oral Tablet 8 milligram Oral orally every day No Longer Active 859294 Naproxen 500 MG Oral Tablet 500 milligram Oral orally 2 times per day as needed. (administer with food or milk;) pain No Longer Active Allergies Code Code System Allergy Substance Type Reaction Severity Start Date End Date Status 711456 RXNorm Depakote Drug allergy liver failure Severe Active Results * No data in the system Vital Signs Vitals Value Date Body Temperature 98.4 F 11/08/2017 Respiratory Rate 18 11/08/2017 O2% BldC Oximetry 98 11/08/2017 BP Systolic 151 mmHg 11/08/2017 BP Diastolic 96 mmHg 11/08/2017 Weight Measured 176.36 lbs 11/08/2017 Plan of Care * No data in the system Procedures * No data in the system Encounters Date Code Diagnosis Status (ICD10) - L0231 CUTANEOUS ABSCESS OF BUTTOCK Active Immunizations * No data in the system Functional Status * No data in the system Hospital Discharge Instructions * No data in the system
[2019-05-28] MEDS ORDERED: HYDROCODONE/APAP 5MG-325MG TAB PO ONE (12:45)
--- NOTE | 2019-05-28 14:38 | Diagnostic Imaging Report ---
Exam: Left wrist 3 views History: Fall, concern for fracture Comparison: None. Findings: There is an acute, markedly comminuted intra-articular distal radial fracture with dorsal angulation and approximately 1 cm fracture fragment overriding seen on the lateral radiograph. The scaphoid is intact. Appropriate alignment between the distal radius, lunate, and capitate is maintained. Associated minimally displaced ulnar styloid avulsion fracture. Regional soft tissue swelling. Impression: Acute, markedly comminuted and impacted intra-articular distal radial fracture with associated mildly displaced ulnar styloid avulsion. Signed by: Dr. Tay Ye M.D. on 05/28/2019 2:34 PM
--- NOTE | 2019-05-28 14:40 | Diagnostic Imaging Report ---
Exam: Left hip 2 views, pelvis single frontal view History: Status post fall, concern for fracture Comparison: None. Findings: No acute, displaced fracture or dislocation. Hip joints are symmetric. Femoral heads project appropriately over the acetabula. Symphysis pubis and pubic rami are intact. Soft tissues unremarkable. Impression: No acute osseous abnormality. Signed by: Dr. Tay Ye M.D. on 05/28/2019 2:37 PM
--- NOTE | 2019-05-28 14:54 | Diagnostic Imaging Report ---
Exam: Left knee 3 views History: Concern for fracture, status post fall Comparison: None. Findings: There is an acute, comminuted intra-articular fracture of the proximal tibia with slight depression of the lateral tibial plateau and approximately 8 mm lateral distraction of the lateral margin of the lateral tibial plateau. Hairline extension to the proximal tibial diaphysis is seen on the lateral radiograph. Fracture line also extends to the lateral tibial spine. The distal femur, patella, and fibula are intact. Traumatic knee joint effusion/lipohemarthrosis. Soft tissue swelling about the knee. Impression: Acute, comminuted and slightly depressed intra-articular fracture of the lateral tibial plateau, with lateral fragment distraction as detailed above. Signed by: Dr. Tay Ye M.D. on 05/28/2019 2:51 PM
[2019-05-28] MEDS ORDERED: FENTANYL CITRATE/PF 100MCG/2 ML INJ IV ONE (16:00)
[2019-05-28 16:31] LABS: BASOPHILS # (AUTO) 0.1 (0.0-0.1); BASOPHILS % 0.7 % (0.0-1.0); EOSINOPHILS # (AUTO) 0.4 (0.0-0.4); EOSINOPHILS % 2.5 % (0.0-6.0); HEMATOCRIT 37.8 % (34.2-44.1); HEMOGLOBIN 12.3 g/dL (12.0-16.0); LYMPHOCYTES # (AUTO) 7.4 (1.0-3.2); LYMPHOCYTES % 46.8 % (18.0-39.1); MEAN CORPUSCULAR HEMOGLOBIN 30.3 pg (28-32); MEAN CORPUSCULAR HGB CONC 32.5 g/dL (31-35); MEAN CORPUSCULAR VOLUME 93.1 fL (81-99); MONOCYTES # (AUTO) 1.4 (0.2-0.8); MONOCYTES % 8.9 % (4.4-11.3); NEUTROPHILS # (AUTO) 6.5 (2.1-6.9); NEUTROPHILS % 40.8 % (38.7-80.0); PLATELET COUNT 320 x10e3/uL (140-360); RED BLOOD COUNT 4.06 x10e6/uL (3.6-5.1); RED CELL DISTRIBUTION WIDTH 13.9 % (11.7-14.4)
[2019-05-28 16:40] LABS: INR 0.95; PROTHROMBIN TIME 13.2 seconds (11.9-14.5)
[2019-05-28 16:41] LABS: PARTIAL THROMBOPLASTIN TIME 30.6 seconds (23.8-35.5)
[2019-05-28 16:49] LABS: ALANINE AMINOTRANSFERASE 16 IU/L (0-55); ALBUMIN 3.9 g/dL (3.5-5.0); ALBUMIN/GLOBULIN RATIO 1.1 (0.8-2.0); ALKALINE PHOSPHATASE 55 IU/L (40-150); ANION GAP 13.5 mmol/L (8-16); BLOOD UREA NITROGEN 18 mg/dL (7-26); BUN/CREATININE RATIO 27 (6-25); CALCIUM 9.4 mg/dL (8.4-10.2); CARBON DIOXIDE 31 mmol/L (22-29); CHLORIDE 99 mmol/L (98-107); CREATININE, SERUM 0.66 mg/dL (0.57-1.11); EST GLOMERULAR FILTRATION RATE > 60 ML/MIN (60-); GLUCOSE 83 mg/dL (74-118); POTASSIUM 3.5 mmol/L (3.5-5.1); SODIUM 140 mmol/L (136-145)
[2019-05-28] MEDS ORDERED: HYDROMORPHONE 1MG/1ML INJ IV ONE (18:02)
[2019-05-28] MEDS ORDERED: MORPHINE SULFATE 2 MG/ML SYR 1ML IV PRN (19:15)
[2019-05-28] MEDS: MORPHINE SULFATE INJ 4 MG/ML INJ 1ML IV PRN ×2 (19:25→23:19)
--- NOTE | 2019-05-28 19:46 | Diagnostic Imaging Report ---
EXAM: WRIST COMPLETE LEFT DATE: 05/28/2019 6:30 PM INDICATION: ^post reduction ^[id number] ^[id number] COMPARISON: Left wrist, 05/28/2019, 1:39 PM FINDINGS: 3 views of the left wrist through an opaque cast show reduction of the comminuted distal radial fracture since previous exam. Again noted is an avulsed fracture of the ulnar styloid. IMPRESSION: Reduction of the distal radial fracture. Signed by: Dr. Goldy Schaffer M.D. on 05/28/2019 7:42 PM
[2019-05-28 20:29] LABS: EOSINOPHILS % (MANUAL) 1 % (0-7); LYMPHOCYTES % (MANUAL) 35 % (19-48); MONOCYTES % (MANUAL) 13 % (3.4-9.0); NEUTROPHILS % (MANUAL) 43 % (40-74); PLATELET ESTIMATE ADEQUATE; PLATELET MORPHOLOGY COMMENT FEW LARGE; RBC MORPHOLOGY COMMENT NORMAL; TOXIC GRANULATION SLIGHT
--- NOTE | 2019-05-28 20:54 | NUR ---
Received patient from ER. Patient alert and oriented, no s/s of distress or c/o pain at this time. Patient currently on bedpan. All safety measures in place. Call light within reach, bed alarm on. Will continue to monitor.
[2019-05-28] MEDS: NICOTINE 14 MG/EA PATCH TOP SCH (21:47)
[2019-05-28 21:48] VITALS: BP 115/59
[2019-05-28] MEDS ORDERED: INFLUENZA VIRUS VAC SPLIT INJ 0.5 ML SYR IM SCH (21:52)
[2019-05-28 21:53] VITALS: BP 115/59
[2019-05-28] MEDS ORDERED: LEXAPRO20 MG PO (22:11)
[2019-05-28] MEDS ORDERED: NAPROXEN250 MG PO (22:11)
[2019-05-28] MEDS ORDERED: GABAPENTIN100 MG PO (22:11)
[2019-05-28] MEDS ORDERED: TRAZODONE HCL50 MG PO (22:11)
[2019-05-28 22:14] VITALS: BP 115/59
--- NOTE | 2019-05-28 22:18 | Diagnostic Imaging Report ---
EXAM: CT of the left without contrast INDICATION: Left tibial plateau fracture, trauma, pain COMPARISON: Left knee radiographs 05/28/2019. TECHNIQUE: Multidetector CT scanning of the left knee was performed. Coronal and sagittal multiplanar reformations were obtained. RADIATION DOSE: Total DLP: 129 mGy*cm Estimated effective dose: (DLP x 0.014 x size factor) mSv CTDIvol has been reviewed. It is below the limits set by the Radiation Protocol Committee (RPC). Dose modulation, iterative reconstruction, and/or weight based adjustment of the mA/kV was utilized to reduce the radiation dose to as low as reasonably achievable. FINDINGS: Bones: Depressed comminuted minimally displaced lateral tibial plateau fracture with fracture line extending inferiorly to the proximal tibial shaft Joints: Moderate lipohemarthrosis. No dislocation. Soft Tissues: Mild soft tissue swelling about the knee. IMPRESSION: 1. Depressed comminuted minimally displaced lateral tibial plateau fracture with fracture line extending to the tibial spines, and inferiorly to the proximal tibial shaft. 2. Moderate lipohemarthrosis Signed by: Joe Pressley DO on 05/28/2019 10:14 PM
--- NOTE | 2019-05-28 22:55 | NUR ---
Patient reports feeling urge to urinate and inability to urinate using bedpan. Requesting Beyer catheter or bedside commode. Placed Purewick on patient due to high fall risk. No urine noted. Bladder scan showing 0 ml volume.
[2019-05-29] VITALS (9 sets, daily range): BP systolic 119–136; BP diastolic 61–75
[2019-05-29] MEDS: HYDROMORPHONE 1MG/1ML INJ IV PRN ×6 (00:31→21:34)
--- NOTE | 2019-05-29 04:32 | NUR ---
Assisted patient to bedside commode along with patient tech. Patient states she felt the urge to void but was having difficulty voiding with the Purewick. Patient voided 500 ml of dark orange colored urine. All safety measures in place. Instructed to call for assistance with toileting or anything else. Verbalized understanding. Call light within reach. Will continue to monitor.
--- NOTE | 2019-05-29 06:53 | NUR ---
Gave bedside report to day nurse. Patient resting in bed, no s/s of distress or c/o pain at this time. All safety measures in place.
[2019-05-29] MEDS: ENOXAPARIN SOD INJ 40 MG/0.4 ML SYR SC SCH (08:51)
[2019-05-29] MEDS: NICOTINE 14 MG/EA PATCH TOP SCH (08:51)
[2019-05-29 11:43] LABS: BASOPHILS # (AUTO) 0.1 (0.0-0.1); BASOPHILS % 0.7 % (0.0-1.0); EOSINOPHILS # (AUTO) 0.3 (0.0-0.4); HEMATOCRIT 33.5 % (34.2-44.1); HEMOGLOBIN 10.8 g/dL (12.0-16.0); LYMPHOCYTES # (AUTO) 6.7 (1.0-3.2); LYMPHOCYTES % 41.7 % (18.0-39.1); MEAN CORPUSCULAR HEMOGLOBIN 30.1 pg (28-32); MEAN CORPUSCULAR HGB CONC 32.2 g/dL (31-35); MEAN CORPUSCULAR VOLUME 93.3 fL (81-99); MONOCYTES # (AUTO) 1.4 (0.2-0.8); MONOCYTES % 8.7 % (4.4-11.3); NEUTROPHILS # (AUTO) 7.6 (2.1-6.9); NEUTROPHILS % 46.6 % (38.7-80.0); PLATELET COUNT 329 x10e3/uL (140-360); RED BLOOD COUNT 3.59 x10e6/uL (3.6-5.1); RED CELL DISTRIBUTION WIDTH 13.8 % (11.7-14.4)
[2019-05-29 13:35] LABS: EOSINOPHILS % (MANUAL) 2 % (0-7); LYMPHOCYTES % (MANUAL) 39 % (19-48); MONOCYTES % (MANUAL) 8 % (3.4-9.0)
[2019-05-29 13:36] LABS: BAND NEUTROPHILS % (MANUAL) 2 %; NEUTROPHILS % (MANUAL) 49 % (40-74)
[2019-05-29 13:41] LABS: PLATELET ESTIMATE ADEQUATE; PLATELET MORPHOLOGY COMMENT NORMAL; RBC MORPHOLOGY COMMENT NORMAL
[2019-05-29] MEDS ORDERED: SODIUM CHLORIDE 0.9% 250ML 250 ML ONE (13:42)
[2019-05-29] MEDS: CEFTRIAXONE SOD 1 GM/NS 50 ML 50 ML IV SCH (14:00)
[2019-05-29] MEDS: ACETAMINOPHEN 325 MG TAB PO PRN ×2 (14:01→20:07)
[2019-05-29] MEDS: ONDANSETRON HCL INJ 2MG/ML 2ML 2 MG/ML VIAL IV PRN ×2 (14:01→21:34)
--- NOTE | 2019-05-29 14:54 | NUR ---
GAVE SELF PAY PACKET TO FOLLOW UP WITH COMMUNITY RESOURCES NEEDED
--- NOTE | 2019-05-29 19:15 | NUR ---
Received bedside report from day nurse. Patient resting in bed, no s/s of distress or c/o pain at this time. Bed alarm on, call light placed within reach. All safety measures in place. Will continue to monitor.
[2019-05-30] VITALS (9 sets, daily range): BP systolic 109–140; BP diastolic 66–73
[2019-05-30] MEDS: HYDROMORPHONE 1MG/1ML INJ IV PRN ×6 (01:16→22:40)
[2019-05-30 05:36] LABS: BASOPHILS # (AUTO) 0.1 (0.0-0.1); BASOPHILS % 0.7 % (0.0-1.0); EOSINOPHILS # (AUTO) 0.4 (0.0-0.4); EOSINOPHILS % 2.5 % (0.0-6.0); HEMATOCRIT 32.7 % (34.2-44.1); HEMOGLOBIN 10.3 g/dL (12.0-16.0); LYMPHOCYTES # (AUTO) 7.7 (1.0-3.2); LYMPHOCYTES % 51.1 % (18.0-39.1); MEAN CORPUSCULAR HEMOGLOBIN 29.8 pg (28-32); MEAN CORPUSCULAR HGB CONC 31.5 g/dL (31-35); MEAN CORPUSCULAR VOLUME 94.5 fL (81-99); MONOCYTES # (AUTO) 1.6 (0.2-0.8); MONOCYTES % 10.9 % (4.4-11.3); NEUTROPHILS # (AUTO) 5.2 (2.1-6.9); NEUTROPHILS % 34.6 % (38.7-80.0); PLATELET COUNT 325 x10e3/uL (140-360); RED BLOOD COUNT 3.46 x10e6/uL (3.6-5.1)
[2019-05-30] MEDS: ONDANSETRON HCL INJ 2MG/ML 2ML 2 MG/ML VIAL IV PRN ×2 (05:37→16:55)
[2019-05-30] MEDS: FAMOTIDINE 20 MG TAB PO SCH (05:37)
[2019-05-30 06:02] LABS: ANION GAP 12.5 mmol/L (8-16); BLOOD UREA NITROGEN 10 mg/dL (7-26); BUN/CREATININE RATIO 16 (6-25); CALCIUM 8.9 mg/dL (8.4-10.2); CARBON DIOXIDE 31 mmol/L (22-29); CHLORIDE 99 mmol/L (98-107); CREATININE, SERUM 0.62 mg/dL (0.57-1.11); EST GLOMERULAR FILTRATION RATE > 60 ML/MIN (60-); GLUCOSE 102 mg/dL (74-118); POTASSIUM 3.5 mmol/L (3.5-5.1); SODIUM 139 mmol/L (136-145)
--- NOTE | 2019-05-30 06:47 | NUR ---
Gave bedside report to oncoming nurse. Patient resting in bed, no s/s of distress or c/o pain at this time. All safety measures in place.
[2019-05-30] MEDS: NICOTINE 14 MG/EA PATCH TOP SCH (08:08)
[2019-05-30] MEDS: ACETAMINOPHEN 325 MG TAB PO PRN ×2 (08:08→16:55)
[2019-05-30] MEDS: ENOXAPARIN SOD INJ 40 MG/0.4 ML SYR SC SCH (08:08)
[2019-05-30] MEDS: GABAPENTIN 100 MG CAP PO SCH (08:08)
[2019-05-30] MEDS: ESCITALOPRAM OXALATE 10 MG TAB PO SCH (08:08)
--- NOTE | 2019-05-30 13:05 | NUR ---
Pastoral Visitor referred to pt by RN. Visit made by the Spiritual Care Department Pastoral Visitor, Wyatt Yanes. PV provided pastoral presence, prayer, hospitality, and supportive listening. Pastoral Visitor informed pt/family of the scope of [employer]amp Attendant [employer] and availability. KTAHY NEVES [facility] Spiritual Care Department O: [phone] Pager: [phone] ([phone] number calling from)
[2019-05-30] MEDS: CEFTRIAXONE SOD 1 GM/NS 50 ML 50 ML IV SCH (13:11)
[2019-05-30 14:43] LABS: EOSINOPHILS % (MANUAL) 2 % (0-7); LYMPHOCYTES % (MANUAL) 50 % (19-48); MONOCYTES % (MANUAL) 7 % (3.4-9.0); NEUTROPHILS % (MANUAL) 41 % (40-74)
[2019-05-30 14:47] LABS: PLATELET ESTIMATE ADEQUATE; POLYCHROMASIA FEW
[2019-05-30 14:48] LABS: PLATELET MORPHOLOGY COMMENT FEW LARGE
[2019-05-30] MEDS ORDERED: SODIUM CHLORIDE 0.9% 1000ML 1,000 ML IV SCH (17:30)
[2019-05-30] MEDS ORDERED: HEPARIN SOD (PORCINE) 5,000 UNIT/ML VIAL SC ONE (19:00)
[2019-05-30 19:26] LABS: BASOPHILS # (AUTO) 0.1 (0.0-0.1); BASOPHILS % 0.7 % (0.0-1.0); EOSINOPHILS # (AUTO) 0.3 (0.0-0.4); EOSINOPHILS % 1.7 % (0.0-6.0); HEMATOCRIT 32.7 % (34.2-44.1); HEMOGLOBIN 10.3 g/dL (12.0-16.0); LYMPHOCYTES # (AUTO) 7.3 (1.0-3.2); LYMPHOCYTES % 43.6 % (18.0-39.1); MEAN CORPUSCULAR HEMOGLOBIN 29.8 pg (28-32); MEAN CORPUSCULAR HGB CONC 31.5 g/dL (31-35); MEAN CORPUSCULAR VOLUME 94.5 fL (81-99); MONOCYTES # (AUTO) 1.6 (0.2-0.8); MONOCYTES % 9.6 % (4.4-11.3); NEUTROPHILS # (AUTO) 7.4 (2.1-6.9); NEUTROPHILS % 44.1 % (38.7-80.0); PLATELET COUNT 366 x10e3/uL (140-360); RED BLOOD COUNT 3.46 x10e6/uL (3.6-5.1)
[2019-05-30 19:45] LABS: ANION GAP 13.6 mmol/L (8-16); BLOOD UREA NITROGEN 10 mg/dL (7-26); BUN/CREATININE RATIO 16 (6-25); CALCIUM 9.1 mg/dL (8.4-10.2); CARBON DIOXIDE 32 mmol/L (22-29); CHLORIDE 98 mmol/L (98-107); CREATININE, SERUM 0.63 mg/dL (0.57-1.11); EST GLOMERULAR FILTRATION RATE > 60 ML/MIN (60-); GLUCOSE 96 mg/dL (74-118); POTASSIUM 3.6 mmol/L (3.5-5.1); SODIUM 140 mmol/L (136-145)
--- NOTE | 2019-05-30 20:00 | NUR ---
INITIAL ASSESSMENT COMPLETE, CALL LIGHT IN REACH, LEFT ARM IN SPLINT WITH TIKI WRAP, LEFT LEG IN IMMOBILIZER, PT UP WITH ASSIST TO BSC AND HELP BACK TO BED, CALL LIGHT IN REACH, TOLD TO CALL FOR HELP
--- NOTE | 2019-05-30 21:30 | NUR ---
NEW IV STARTED TO RIGHT FOREARM X'S SEVERAL STICKS PER PROTOCOL, VERY DIFFICULT STICK FOR IV OR BLOOD, LAB DRAWN, TOLD TO CALL FOR HELP OR NEEDS
--- NOTE | 2019-05-30 21:47 | NUR ---
ORTHOPEDIC CONSULTATION 54 year old right hand dominant community ambulating female without assistive device presents to the ED with left wrist and knee pain. In regards to her knee, she fell at home nearly a week ago and when to [facility] where she states she was not seen or treated for several hours. She left AMA and on 05/28 fell backwards on an outstretched arm resulting in severe left wrist pain with gross deformity. She denies numbness, paresthesias or loss of distal motor function. Pain localized to left knee and left wrist. PMdHx: Chronic Back Pain, Hypoglycemia Surghx: Cholecystectomy, Hysterectomy, Ectopic Pregnancys Meds: See reconciliation Allergies: NKDA Famhx: Non-contributory SocHx: Questionable tobacco, Positive EtOH & Positive Methamphetamins & Marijuana VS: T 100.00, HR 84, RR 20, BP 122/72 O2 93% Left Wrist in Splint - clean, dry and intact, Fingers swollen No open lesions or sores Motor: + AIN, PIN, Radial, Median Ulnar Sensation grossly intact to light touch Pulses + good capillary refill Compartments soft Left Leg in Bulky Sanders Knee immobilizer Motor: + EHL, FHL, TA, G/S Sensation grossly intact Pulses + DP, Post tib Compartments soft Negative calf tenderness Xrays & CT of Left Knee demonstrate Split Depression type patter of the lateral tibial plateau Xrays of Left Wrist demonstrate intra-articular at least 3 part distal radius and ulnar styloid fracture 54 year old Female with left knee lateral tibial plateau fracture and left comminuted distal radius fracture Plan for ORIF tomorrow NPO except meds after midnight IVF while NPO Hold anticoagulation after midnight Analgesics PRN Continue bulky sanders knee immobilizer and left wrist splint Rest, Ice & Elevation Kaci Kelley, DO [facility]
--- NOTE | 2019-05-30 21:56 | Diagnostic Imaging Report ---
EXAMINATION: CHEST 2 VIEWS INDICATION: Surgery preop COMPARISON: None FINDINGS: PA and lateral views TUBES and LINES: None. LUNGS: Lungs are well inflated. Lungs are clear. There is no evidence of pneumonia or pulmonary edema. Prominent central pulmonary vasculature. PLEURA: No pleural effusion or pneumothorax. HEART AND MEDIASTINUM: Borderline cardiomegaly. BONES AND SOFT TISSUES: No acute osseous lesion. Soft tissues are unremarkable. UPPER ABDOMEN: No free air under the diaphragm. IMPRESSION: Borderline cardiomegaly and central pulmonary vascular congestion. Signed by: Joe Pressley DO on 05/30/2019 9:52 PM
[2019-05-30 23:20] LABS: INR 0.92; PROTHROMBIN TIME 12.9 seconds (11.9-14.5)
[2019-05-30 23:21] LABS: PARTIAL THROMBOPLASTIN TIME 27.3 seconds (23.8-35.5)
[2019-05-31] VITALS: BP 120/70
[2019-05-31] MEDS: HYDROMORPHONE 1MG/1ML INJ IV PRN ×2 (02:07→06:27)
[2019-05-31 04:00] VITALS: BP 127/68
[2019-05-31 04:26] LABS: BILIRUBIN,URINE NEGATIVE (NEGATIVE); CLARITY,URINE SL CLOUDY (CLEAR); COLOR,URINE YELLOW (YELLOW); KETONES,URINE NEGATIVE (NEGATIVE); LEUKOCYTE ESTERASE ,URINE NEGATIVE (NEGATIVE); NITRITE,URINE NEGATIVE (NEGATIVE); PROTEIN,URINE DIPSTICK NEGATIVE (NEGATIVE); URINE UROBILINOGEN 1 mg/dL (0.2 - 1)
[2019-05-31 04:35] LABS: BACTERIA,URINE FEW /HPF; EPITHELIAL CELLS,URINE FEW /LPF
[2019-05-31] MEDS: FAMOTIDINE 20 MG TAB PO SCH (06:00)
[2019-05-31 06:15] LABS: BASOPHILS # (AUTO) 0.1 (0.0-0.1); BASOPHILS % 0.7 % (0.0-1.0); EOSINOPHILS # (AUTO) 0.3 (0.0-0.4); EOSINOPHILS % 1.8 % (0.0-6.0); HEMATOCRIT 32.9 % (34.2-44.1); HEMOGLOBIN 10.3 g/dL (12.0-16.0); LYMPHOCYTES # (AUTO) 6.9 (1.0-3.2); LYMPHOCYTES % 43.1 % (18.0-39.1); MEAN CORPUSCULAR HEMOGLOBIN 29.7 pg (28-32); MEAN CORPUSCULAR HGB CONC 31.3 g/dL (31-35); MEAN CORPUSCULAR VOLUME 94.8 fL (81-99); MONOCYTES # (AUTO) 1.7 (0.2-0.8); MONOCYTES % 10.9 % (4.4-11.3); NEUTROPHILS # (AUTO) 6.9 (2.1-6.9); NEUTROPHILS % 43.2 % (38.7-80.0); PLATELET COUNT 345 x10e3/uL (140-360); RED BLOOD COUNT 3.47 x10e6/uL (3.6-5.1)
[2019-05-31 06:51] LABS: BLOOD UREA NITROGEN 8 mg/dL (7-26); BUN/CREATININE RATIO 13 (6-25); CALCIUM 8.9 mg/dL (8.4-10.2); CHLORIDE 102 mmol/L (98-107); CREATININE, SERUM 0.61 mg/dL (0.57-1.11); EST GLOMERULAR FILTRATION RATE > 60 ML/MIN (60-); GLUCOSE 97 mg/dL (74-118); POTASSIUM 3.8 mmol/L (3.5-5.1); SODIUM 140 mmol/L (136-145)
--- NOTE | 2019-05-31 06:58 | NUR ---
Received patient lying in bed with eyes open. Respiration even and unlabored without SOB. Call light in reach.
[2019-05-31 07:05] LABS: ANION GAP 13.8 mmol/L (8-16); CARBON DIOXIDE 29 mmol/L (22-29)
[2019-05-31] MEDS ORDERED: HYDRALAZINE HCL 20 MG/ML VIAL IV PRN (07:15)
[2019-05-31 07:49] VITALS: BP 125/70
[2019-05-31] MEDS: NICOTINE 14 MG/EA PATCH TOP SCH (08:25)
[2019-05-31] MEDS: GABAPENTIN 100 MG CAP PO SCH (08:29)
[2019-05-31] MEDS: ESCITALOPRAM OXALATE 10 MG TAB PO SCH (08:29)
[2019-05-31 09:01] VITALS: BP 125/70
[2019-05-31] MEDS: MORPHINE SULFATE 2 MG/ML SYR 1ML IV PRN ×2 (09:14→15:07)
--- NOTE | 2019-05-31 11:28 | NUR ---
ASSESSMENT: Spiritual concern Pt considering life changes. Pt states she will use her recovery time to "make some changes" in her life. Pt states she will need 3 months of therapy following hospitalization. Pt states she may stay with her father after therapy. Intervention: Provided empathic listening and pastoral presence. Reminded pt of availability of generation engineer. Outcome: Pt expressed appreciation for visit. KATHY Méndezlain Spiritual Care Department O: [phone] Pager: [phone] ([phone] number calling from)
[2019-05-31] MEDS: HYDROCODONE/APAP 5MG-325MG TAB PO PRN (11:52)
[2019-05-31 12:21] VITALS: BP 157/74
[2019-05-31] MEDS: CEFTRIAXONE SOD 1 GM/NS 50 ML 50 ML IV SCH (15:27)
[2019-05-31 15:52] VITALS: BP 120/62
--- NOTE | 2019-05-31 17:55 | NUR ---
Patient is transported for surgery at this time.
[2019-05-31] MEDS ORDERED: DEXAMETHASONE SOD PHOS INJ 4 MG/ML VIAL ONE (18:37)
[2019-05-31] MEDS ORDERED: ROCURONIUM BROMIDE 10 MG/ML 5ML VIAL ONE (18:37)
[2019-05-31] MEDS ORDERED: NALOXONE HCL INJ 0.4 MG/ML AMP ONE (18:37)
[2019-05-31] MEDS ORDERED: LIDOCAINE HCL 2% LOCAL INJ 5 ML SDV VIAL INJ ONE (18:37)
[2019-05-31] MEDS ORDERED: HYDRALAZINE HCL 20 MG/ML VIAL ONE (18:37)
[2019-05-31] MEDS ORDERED: PROPOFOL IV EMULSION 10 MG/ML 20 ML VIAL ONE (18:37)
[2019-05-31] MEDS ORDERED: CEFAZOLIN SOD 1 GM VIAL ONE (18:37)
[2019-05-31] MEDS ORDERED: SEVOFLURANE INHAL SOLN 250 ML PEN BTL ONE (18:37)
[2019-05-31] MEDS ORDERED: ONDANSETRON HCL INJ 2MG/ML 2ML 2 MG/ML VIAL ONE (18:37)
[2019-05-31] MEDS ORDERED: FENTANYL CITRATE/PF 100MCG/2 ML INJ ONE ×3 (19:36→23:39)
[2019-05-31] MEDS ORDERED: MORPHINE SULFATE INJ 10 MG/ML ONE (19:36)
[2019-05-31] MEDS ORDERED: MIDAZOLAM HCL 2 MG/2 ML VIAL ONE (19:36)
[2019-05-31] MEDS: TRAZODONE HCL 50 MG TAB PO SCH (21:00)
[2019-05-31] MEDS ORDERED: BUPIVACAINE 0.25% 30ML SDV INJ ONE (23:01)
[2019-05-31] MEDS ORDERED: ACETAMINOPHEN 1000 MG/100 ML 100 ML IV ONE (23:39)
[2019-06-01] VITALS (8 sets, daily range): BP systolic 126–150; BP diastolic 60–82
[2019-06-01] MEDS ORDERED: HYDROMORPHONE 1MG/1ML INJ ONE (00:09)
--- NOTE | 2019-06-01 00:18 | Diagnostic Imaging Report ---
Exam: Left knee radiographs-2 views Clinical History: Postoperative. Comparison: None. Finding/Impression: Exam limited by external brace and portable technique. Status post interval ORIF of the proximal tibia with placement of lateral plate and screw construct. Again noted is a minimally displaced lateral tibial plateau fracture with extension into the tibial spine. Alignment is improved. Hardware appears intact. No evidence of interval fracture. Signed by: Dr. Rosario Jimenez MD on 06/01/2019 12:15 AM
--- NOTE | 2019-06-01 00:51 | NUR ---
Received Patient from PACU. Alert and oriented. No complain of pain at this time.
--- NOTE | 2019-06-01 01:03 | NUR ---
OPERATIVE NOTE ORTHOPEDICS DATE OF OPERATION: 05/31/2019 PREOPERATIVE DIAGNOSIS: Left lateral tibial plateau split depression fracture, Left Intra-articular displaced distal radius fracture POSTOPERATIVE DIAGNOSIS: Left lateral tibial plateau split depression fracture, Left Intra-articular displaced distal radius fracture, Lateral Compartment Chondral Loose Body, Medial Meniscus Tear OPERATION PERFORMED: Arthroscopically Assisted Open reduction and internal fixation of left lateral tibial plateau with cancellous bone chips, Arthroscopic Removal of Intraarticular Loose Bodies, Partial Medial Meniscectomy, Left Distal Radius Open Reduction Internal Fixation, Flouroscopic Interpretation SURGEON: Kaci Kelley DO ANESTHESIA: General endotracheal. COMPLICATIONS: None. ESTIMATED BLOOD LOSS: 100 mL. INDICATIONS FOR OPERATION: The patient is a presented with a displaced widened left lateral tibial plateau fracture and displaced left intraarticular comminuted distal radius fracture DESCRIPTION OF OPERATION: The patient was brought to the OR and laid supine on the OR table. After general anesthesia was induced, the left lower extremity and upper extremity was prepped and draped in usual sterile fashion. This was done after a tourniquet was placed high up on his left thigh and upper arm. Esmarch bandage was used to exsanguinate the left lower extremity, and the tourniquet was inflated to 300 mmHg. Arthroscopy was performed providing extensive debridement of hematoma and a large > 5 x 5 mm loose body in the lateral compartment. The medial compartment demonstrated a medial meniscus tear which was debrided to a stable border with an arthroscopic shaver Next, a standard lateral approach to the lateral tibial plateau was performed. A submeniscal arthrotomy was performed. Prolene suture was placed into the meniscus elevating the meniscus, allowing visualization of the joint surface. A depressed posterolateral piece of the articular surface was encountered. Next, the fracture was opened up, wedged like a book using Next, using a combination of elevators and bone tamps, the depressed articular segment was elevated to line it up with the remaining articular surface. This was done from below. Once the articular surface was disimpacted and elevated to its anatomic position, 5 mL of allograft bone chips were impacted into the defect underneath. Next, two K-wires were placed to provisionally hold the reduction of the articular surface. A Bend Axos 3 Left 2 Hold Proximal Tibial Plate was fashioned to the lateral aspect of the tibial plateau. 4.0 Locking x 5, 3.5 Cortex x 4 and 4.0 Cancellous Screw x 1 was placed in standard AO fashion. Next, K-wires that were initially placed were removed. C-arm fluoroscopy was used to confirm excellent position of the articular surface on both the AP and lateral fluoroscopic images, as well as positioning of all screws and hardware. The submeniscal arthrotomy was closed tied down to the plate. The IT band was closed with 0 Vicryl suture in aztgkd-[id number]-djeoi fashion followed by subcutaneous layer of 2-0 Vicryl sutures and paola for the skin. Sterile dressings were applied. The patient was placed into a knee brace. Prior to closu re, the tourniquet was deflated at 100 minutes and hemostasis was obtained. The tourniquet was elevated to 250 mmHg on the left arm. At this time an approximately 8 cm longitudinal incision was then made overlying the right flexo r carpi radialis tendon from the flexion crease to the wrist proximally. This was carried down to the flexor carpi radialis, which was then retracted ulnarly. The floor of the flexor carpi radialissheathwas then incised exposing the flexor pronator muscles. The flexor pollicis longus was retracted ulnarly and theremnants of thepronator quadratus was longitudinally incised 1 cm from its origin. It was then elevated off of the fracture site exposing the fracture site, which was dorsally displacedand shortened. This was an intraarticular four- part fracture. Under image control, the two volar pieces and dorsal pieces were then carefully manipulated and reduced. K-wires were used to temporarily hold the reduction.The fracture ends were copiously irrigated with normal saline and curetted and then the fracture was reduced in the usual fashion by recreating the defect and distracting it. Jean Carlosthe r K-wires were then placed through the radial styloid into the proximal fragment. A[employer]ry[employer] Variax 3 Hole Distal Radius Platefor the LEFT wrist was then fashioned over and placed over the distal radius and secured with 4K-wires. Proximal 3 2.7 Non-locking screws were used to secure the plate distally. Next 3 2.7 Cortical screws were used and 2 more Locking Screws were used in the 2nd to most distal holes in the place. Care was used to avoid intraarticular penetration while maintaining subchondral support which was verified via flouroscopy. Images were obtained and interpreted by me demonstratingadequatereduction of the fragments and the fracture with hardware in appropriate alignment. The incision was thoroughly irrigated and homeostasis was maintained with electrocautery. The subcutaneous tissue was closed with a 2-0 vicryl and the skin was closed with a 3-0 monocryl. The skin was cleaned and steristrips with xeroform were placed over the incision. Through the use of an angiocatch, 10 cc of local anesthetic was placed within the incision. 4x4, Cling were used and a short arm was placed over the arm. The patient was then placed in a sling. The tourniquet was let downat 63 minutes. The fingers were immediately pink. The patient was awakened and taken to the recovery room in good condition. There were no operative complications. The patient tolerated the procedure well.Post operatively, the patient was examined and found to be neurovascularly intact.
[2019-06-01 02:32] LABS: BASOPHILS # (AUTO) 0.1 (0.0-0.1); BASOPHILS % 0.5 % (0.0-1.0); HEMATOCRIT 32.6 % (34.2-44.1); HEMOGLOBIN 10.5 g/dL (12.0-16.0); LYMPHOCYTES # (AUTO) 2.2 (1.0-3.2); LYMPHOCYTES % 12.3 % (18.0-39.1); MEAN CORPUSCULAR HGB CONC 32.2 g/dL (31-35); MEAN CORPUSCULAR VOLUME 93.1 fL (81-99); MONOCYTES # (AUTO) 1.1 (0.2-0.8); NEUTROPHILS # (AUTO) 14.3 (2.1-6.9); NEUTROPHILS % 80.6 % (38.7-80.0); PLATELET COUNT 359 x10e3/uL (140-360); RED CELL DISTRIBUTION WIDTH 14.2 % (11.7-14.4)
[2019-06-01 02:54] LABS: ANION GAP 12.9 mmol/L (8-16); BLOOD UREA NITROGEN 11 mg/dL (7-26); BUN/CREATININE RATIO 18 (6-25); CARBON DIOXIDE 27 mmol/L (22-29); CHLORIDE 101 mmol/L (98-107); CREATININE, SERUM 0.62 mg/dL (0.57-1.11); EST GLOMERULAR FILTRATION RATE > 60 ML/MIN (60-); GLUCOSE 124 mg/dL (74-118); POTASSIUM 3.9 mmol/L (3.5-5.1); SODIUM 137 mmol/L (136-145)
[2019-06-01] MEDS ORDERED: TYLENOL # 31 EA PO (04:33)
[2019-06-01] MEDS: HYDROCODONE/APAP 5MG-325MG TAB PO PRN ×3 (05:14→22:51)
[2019-06-01] MEDS: CEFAZOLIN SOD 1 GM/NS 50ML 50 ML IV SCH ×3 (05:14→21:55)
[2019-06-01] MEDS: FAMOTIDINE 20 MG TAB PO SCH (05:14)
--- NOTE | 2019-06-01 07:13 | NUR ---
ORTHOPEDIC PROGRESS NOTE Patient seen & examined, pain controlled. No acute events overnight. VS T 98 HR 77 RR 18 BP 142/76 O2 98% Left Upper Extremity Splint - clean, dry and intact Motor: + AIN, PIN, Radial, Median, Ulnar Sensation grossly intact to light touch Pulses + good capillary refill Compartments soft Left Lower Leg In Brace, Dressing clean, dry and intact Motor: + EHL, FHL, TA, G/S Sensation grossly intact Pulses + DP, Post tib Compartments soft Negative calf tenderness Hgb/Hct 10.5/32.6 54 yo F s/p Left Distal Radius ORIF & Tibial Plateau ORIF POD#1 Analgesics DVT Prophylaxis PT - NWB LUE & LLE Patient Orthopedically stable for discharge Keep Left upper extremity and left lower extremity elevated Rest, Ice & Elevation Keep dressing clean, dry and intact for 2 weeks Follow up in office in 2 weeks DO SEFERINO [facility]
--- NOTE | 2019-06-01 07:14 | NUR ---
PT ASLEEP AT THIS TIME NO DISTRESS NOTED PT EASILY AROUSED, TO NAME AND TOUCH, CALL LIGHT IN REACH, PT LEFT LEG ELEVATED ON PILLOWS AND ALSO HER LEFT ARM.
[2019-06-01] MEDS: MORPHINE SULFATE 2 MG/ML SYR 1ML IV PRN ×3 (08:00→20:10)
[2019-06-01] MEDS: ONDANSETRON HCL INJ 2MG/ML 2ML 2 MG/ML VIAL IV PRN ×2 (08:00→13:58)
--- NOTE | 2019-06-01 08:10 | NUR ---
Patient noted to be screaming in pain and informing nurse that she has not voided since her surgery. Purewick in place and no urine noted in canister. Bladder scan obtained and noted 545ml. Call placed to TALI Eduardo and new order for amado catheter. 1100ml of straw urine noted in gravity bag. Patient states "I feel much better."
[2019-06-01 08:29] LABS: HEMATOCRIT 31.8 % (34.2-44.1); HEMOGLOBIN 10.3 g/dL (12.0-16.0)
[2019-06-01] MEDS: ASPIRIN 325 MG TAB PO SCH ×2 (09:00→17:57)
[2019-06-01] MEDS: ESCITALOPRAM OXALATE 10 MG TAB PO SCH (09:00)
[2019-06-01] MEDS: GABAPENTIN 100 MG CAP PO SCH (09:01)
[2019-06-01] MEDS: NICOTINE 14 MG/EA PATCH TOP SCH (09:01)
--- NOTE | 2019-06-01 09:30 | NUR ---
PT WORKED WITH PT TOLERATED WELL.
--- NOTE | 2019-06-01 10:56 | NUR ---
CALL TO DR. GALINDO, FOR SPASM MEDICATION. THAT SHE TAKE AT HOME.
[2019-06-01] MEDS: CEFTRIAXONE SOD 1 GM/NS 50 ML 50 ML IV SCH (13:26)
[2019-06-01] MEDS: TIZANIDINE HCL 4 MG TAB PO PRN (15:24)
--- NOTE | 2019-06-01 17:00 | NUR ---
PT WORKED WITH PT SHE TOLERATED WELL. NO DISTRESS NOTED.
--- NOTE | 2019-06-01 19:30 | NUR ---
REPORT GIVEN TO ONCOMING NURSE FOR CONTINUED CARE. PT STABLE.
[2019-06-01] MEDS: TRAZODONE HCL 50 MG TAB PO SCH (20:59)
[2019-06-02] VITALS (8 sets, daily range): BP systolic 84–134; BP diastolic 50–82
--- NOTE | 2019-06-02 05:25 | NUR ---
Beyer discontinued as ordered.
[2019-06-02] MEDS: FAMOTIDINE 20 MG TAB PO SCH (05:41)
[2019-06-02] MEDS: HYDROCODONE/APAP 5MG-325MG TAB PO PRN ×3 (05:53→18:47)
[2019-06-02] MEDS: TIZANIDINE HCL 4 MG TAB PO PRN (05:53)
[2019-06-02 06:00] LABS: BASOPHILS # (AUTO) 0.1 (0.0-0.1); BASOPHILS % 0.6 % (0.0-1.0); EOSINOPHILS # (AUTO) 0.3 (0.0-0.4); EOSINOPHILS % 1.7 % (0.0-6.0); HEMATOCRIT 33.1 % (34.2-44.1); HEMOGLOBIN 10.5 g/dL (12.0-16.0); LYMPHOCYTES # (AUTO) 4.7 (1.0-3.2); LYMPHOCYTES % 30.6 % (18.0-39.1); MEAN CORPUSCULAR HEMOGLOBIN 29.7 pg (28-32); MEAN CORPUSCULAR HGB CONC 31.7 g/dL (31-35); MEAN CORPUSCULAR VOLUME 93.8 fL (81-99); MONOCYTES % 12.7 % (4.4-11.3); NEUTROPHILS # (AUTO) 8.3 (2.1-6.9); NEUTROPHILS % 53.9 % (38.7-80.0); PLATELET COUNT 379 x10e3/uL (140-360); RED BLOOD COUNT 3.53 x10e6/uL (3.6-5.1); RED CELL DISTRIBUTION WIDTH 14.4 % (11.7-14.4)
[2019-06-02 06:12] LABS: ANION GAP 12.6 mmol/L (8-16); BLOOD UREA NITROGEN 9 mg/dL (7-26); BUN/CREATININE RATIO 14 (6-25); CARBON DIOXIDE 27 mmol/L (22-29); CHLORIDE 102 mmol/L (98-107); CREATININE, SERUM 0.65 mg/dL (0.57-1.11); EST GLOMERULAR FILTRATION RATE > 60 ML/MIN (60-); GLUCOSE 113 mg/dL (74-118); POTASSIUM 3.6 mmol/L (3.5-5.1); SODIUM 138 mmol/L (136-145)
--- NOTE | 2019-06-02 07:00 | NUR ---
Rcvd patient in report this am. Patient is asleep in bed at this time. No s/s of distress noted
[2019-06-02] MEDS: GABAPENTIN 100 MG CAP PO SCH (08:57)
[2019-06-02] MEDS: ASPIRIN 325 MG TAB PO SCH ×2 (08:57→17:08)
[2019-06-02] MEDS: ESCITALOPRAM OXALATE 10 MG TAB PO SCH (08:57)
[2019-06-02] MEDS: NICOTINE 14 MG/EA PATCH TOP SCH (08:57)
--- NOTE | 2019-06-02 11:46 | NUR ---
Patient voided at this time.
[2019-06-02] MEDS: CEFTRIAXONE SOD 1 GM/NS 50 ML 50 ML IV SCH (13:00)
--- NOTE | 2019-06-02 17:57 | NUR ---
Informed patient that she is discharged and she informed that she has no ride and no keys. this nurse attempted to call brother and no answer. left a message. Informed TALI Eduardo
[2019-06-02] MEDS ORDERED: ACETAMINOPHEN/CODEINE 300MG - 30MG TAB PO PRN (19:00)
[2019-06-02] MEDS: TRAZODONE HCL 50 MG TAB PO SCH (22:15)
[2019-06-03] VITALS: BP 119/57
[2019-06-03 04:00] VITALS: BP 123/64
[2019-06-03] MEDS: FAMOTIDINE 20 MG TAB PO SCH (06:21)
[2019-06-03] MEDS: TIZANIDINE HCL 4 MG TAB PO PRN (06:29)
[2019-06-03] MEDS: ESCITALOPRAM OXALATE 10 MG TAB PO SCH (08:20)
[2019-06-03] MEDS: ASPIRIN 325 MG TAB PO SCH (08:20)
[2019-06-03] MEDS: NICOTINE 14 MG/EA PATCH TOP SCH (08:21)
[2019-06-03] MEDS: GABAPENTIN 100 MG CAP PO SCH (08:21)
[2019-06-03 08:22] VITALS: BP 123/64
[2019-06-03 08:23] VITALS: BP 96/60
[2019-06-03] MEDS ORDERED: ONDANSETRON HCL 4 MG ORAL DISINTEGRATING TAB PO PRN (09:15)
--- NOTE | 2019-06-03 10:10 | NUR ---
WENT TO ROOM TO DISCUSS WHEELCHAIR ORDER, NEW CHAIR IN ROOM, NO DOCUMENTATION ON HOW GOT THERE, SO COMPLETED ORDER PT IS WAITING ON BROTHER TO COME CLERICAL ADJUDICATOR.
[2019-06-03 13:43] VITALS: BP 113/65
[2019-06-03] MEDS: ACETAMINOPHEN 325 MG TAB PO PRN (14:21)
--- NOTE | 2019-06-03 14:48 | NUR ---
Patient discharged home, Her Brother ( Mich) here to pick him, prescription given, IV Canula removed with tip intact, no ss of infiltration, dressing intact on left leg and left arm, instruction given to elevate fractured extremities, patient aware about her f/up appointments, no distress noted, transported via wheelchair [facility].
--- NOTE | 2019-06-04 18:42 | Discharge Summary ---
ADMISSION DIAGNOSES: 1. Left wrist and left radial tibial plateau fracture, status post fall. 2. Leukocytosis. 3. Bipolar depression. 4. Neuropathic pain. DISCHARGE DIAGNOSES: 1. Left wrist and left radial tibial plateau fracture, status post fall. 2. Leukocytosis. 3. Bipolar depression. 4. Neuropathic pain. HISTORY: Chronic pain, degenerative joint disease. SURGICAL HISTORY: Two foot surgeries and hysterectomy. FAMILY HISTORY: Noncontributory. SOCIAL HISTORY: History of illicit drug use. HOSPITAL COURSE: A 54-year-old female, admits status post fall with a left wrist and left tibial plateau fracture. She first fell and broke her tibia, but was trying to avoid surgery and put up with the pain and she fell again and broke her wrist. On admission, left wrist x-ray showed acute markedly comminuted and impacted intra-articular distal radial fracture with associated mildly displaced ulnar styloid avulsion. X-ray of the left knee showed acute comminuted and slightly depressed intra-articular fracture of the lateral tibial plateau with lateral fragment distraction. Chest x-ray showed borderline cardiomegaly and central pulmonary vascular congestion. The patient was taken to the OR on 05/31/2019, and had a left arthroscopic assisted open reduction, internal fixation of the tibial plateau and left distal radius ORIF. After the surgery, the patient is feeling much better and pain is controlled. The patient will discharge home and follow up with primary care and Ortho in 1 to 2 weeks. The patient is limited weightbearing on the left lower extremity. She will discharge home with her brother. She was given a prescription for pain medicine. Vital signs are stable. The patient is afebrile. Dictated by Alesha Pacheco NP MD TEO Castillo/[email or web address] /[id number]
== END 2019-06-03 15:02 | disposition home or self-care (01) | DRG 488 ==
LOC: ER 12:10 → ERHOLD 19:10 → MED/SURG 20:51 → UNDODISIN 06-03 14:55
PROVIDERS: ADMIT Internal Medicine; ATTEND Internal Medicine
PROC: 0PSJXZZ Reposition Left Radius, External Approach (ICD-10-PCS; 2019-05-28)
PROC: 0SBD4ZZ Excision of Left Knee Joint, Percutaneous Endoscopic Approach (ICD-10-PCS; 2019-05-31)
PROC: 0SCD4ZZ Extirpation of Matter from Left Knee Joint, Percutaneous Endoscopic Approach (ICD-10-PCS; 2019-05-31)
PROC: 0QSH04Z Reposition Left Tibia with Internal Fixation Device, Open Approach (ICD-10-PCS; principal; 2019-05-31 19:04)
DX: S82.142A Displaced bicondylar fracture of left tibia, initial encounter for closed fracture (principal); S52.572A Other intraarticular fracture of lower end of left radius, initial encounter for closed fracture; N39.0 Urinary tract infection, site not specified; D72.829 Elevated white blood cell count, unspecified; F31.9 Bipolar disorder, unspecified; G62.9 Polyneuropathy, unspecified; M24.08 Loose body, other site; S83.242A Other tear of medial meniscus, current injury, left knee, initial encounter; W01.0XXA Fall on same level from slipping, tripping and stumbling without subsequent striking against object, initial encounter; Y93.89 Activity, other specified; Y92.014 Private driveway to single-family (private) house as the place of occurrence of the external cause; Z90.49 Acquired absence of other specified parts of digestive tract; F15.10 Other stimulant abuse, uncomplicated; F12.10 Cannabis abuse, uncomplicated; Z82.49 Family history of ischemic heart disease and other diseases of the circulatory system; G89.4 Chronic pain syndrome; Z87.440 Personal history of urinary (tract) infections; R33.9 Retention of urine, unspecified; F10.10 Alcohol abuse, uncomplicated
CPT/HCPCS: 36415; 71046; 80048; 80053; 81001; 82948; 85014; 85018; 85025; 85610; 85730; 86850; 86900; 87040; 87086; 93005; 93041; 97139; 99285; C1713; J0360; J0690; J0696; J1100; J1170; J1644; J1650; J2001; J2250; J2270; J2310; J2405; J3010; J7030; J7050; Q0162